=== PATIENT | female | born 1940 | race Two or more races ===

== ENCOUNTER 2019-07-06 16:23 | Inpatient (IN) | payer MEDICARE, MEDICAID ==
[~2019-07-06] VITALS: Ht 165.1 cm; Wt 108.4 kg
--- NOTE | 2019-07-06 17:00 | NUR ---
patient bib ra c/o episode of aphasia, now resolved. On room air, breathing evenly and unlabored. connected to the monitro and pulse ox. kept comfortable, will continue to monitor accordingly.
[2019-07-06 17:04] LABS: BASOPHILS % (AUTO) 0.3 % (0.0-2.0); EOSINOPHILS % (AUTO) 0.1 % (0.0-6.0); HEMATOCRIT 49 % (33-45); HEMOGLOBIN 16.1 g/dL (11.5-14.8); LYMPHOCYTES # (AUTO) 0.6 /CMM (0.8-4.8); LYMPHOCYTES % (AUTO) 3.6 % (20.0-44.0); MEAN CORPUSCULAR HGB CONC 33 g/dl (31.0-36.0); MEAN CORPUSCULAR VOLUME 85 fL (82-100); MONOCYTES % (AUTO) 6.2 % (2.0-12.0); NEUTROPHILS # (AUTO) 15.1 /CMM (1.8-8.9); NEUTROPHILS % (AUTO) 89.8 % (43.0-81.0); PLATELET COUNT (AUTO) 228 /CMM (150-450); RED BLOOD CELL COUNT(AUTO) 5.73 MIL/uL (4.0-5.2); WHITE BLOOD COUNT (AUTO) 16.8 K/uL (4.3-11.0)
[2019-07-06 17:12] LABS: CALCIUM, SERUM 9.4 mg/dL (8.5-10.1); CARBON DIOXIDE 24 mmol/L (21-32); CHLORIDE 103 mmol/L (98-107); CREATININE 0.9 mg/dL (0.6-1.3); GLUCOSE 155 mg/dL (74-106); POTASSIUM 3.8 mmol/L (3.5-5.1); SODIUM SERUM 140 mmol/L (136-145); UREA NITROGEN, BLOOD 12 mg/dL (7-18)
[2019-07-06 17:18] LABS: APPEARANCE,URINE Slightly Cloudy (CLEAR); BILIRUBIN,URINE SMALL (NEGATIVE); BLOOD, URINE Moderate Ery/uL (NEGATIVE); COLOR,URINE Dark (YELLOW); KETONES,URINE Negative (NEGATIVE); LEUKOCYTE ESTERASE ,URINE Negative (NEGATIVE); NITRITE, URINE Positive (NEGATIVE); PROTEIN,URINE Trace mg/dl (NEGATIVE); UGLUCOSE Negative (NEGATIVE); UROBILINOGEN,URINE 0.2 EU/dL (0.2)
[2019-07-06 17:33] LABS: BACTERIA,URINE Many /HPF (None Seen); SQUAMOUS EPITHELIAL CELL,UR Rare /HPF (None Seen)
[2019-07-06 17:34] LABS: RBC,URINE 0-2 /HPF (0-2); URINE AMORPHOUS URATE Many /HPF (None Seen)
[2019-07-06] MEDS ORDERED: CEFTRIAXONE 1GM BAG (ER ONLY) 50 ML IV ONE (17:51)
[2019-07-06] MEDS ORDERED: CEFTRIAXONE 1GM BAG (ER ONLY) 1 GM/50 ML PIGGYBACK IV ONE (18:00)
[2019-07-06] MEDS ORDERED: IV NS 0.9% 1,000 ML IV ONE (18:00)
[2019-07-06] MEDS ORDERED: ATOR10TA PO (18:03)
[2019-07-06] MEDS ORDERED: ACET-2605 PO (18:03)
[2019-07-06] MEDS ORDERED: AMLO5TAB4 PO (18:03)
[2019-07-06] MEDS ORDERED: ASPI-1169 PO (18:03)
[2019-07-06] MEDS ORDERED: ATEN100T PO (18:03)
[2019-07-06] MEDS ORDERED: DOCU250C14 PO (18:03)
--- NOTE | 2019-07-06 18:11 | NUR ---
WON PAGED, DR. HAMMOND ON-CALL. AWAITING FOR CALL BACK.
[2019-07-06] MEDS ORDERED: Magnesium 1GM/D5W 100ML PREMIX 100 ML IV ONE (18:27)
[2019-07-06] MEDS ORDERED: Magnesium 1GM/D5W 100ML PREMIX 100 ML IV SCH (18:30)
[2019-07-06 18:51] LABS: ALBUMIN 3.5 g/dL (3.4-5.0); BILIRUBIN,DIRECT 1.1 mg/dL (0.0-0.2); TOTAL PROTEIN, SERUM 7.8 g/dL (6.4-8.2)
--- NOTE | 2019-07-06 19:09 | NUR ---
report given to Monica ECHEVERRIA for eleonora.
--- NOTE | 2019-07-06 19:11 | NUR ---
PAGED DR MEZA
[2019-07-06 19:28] LABS: BILIRUBIN,TOTAL 1.7 mg/dL (0.2-1.0)
--- NOTE | 2019-07-06 20:17 | NUR ---
CALLED NURSING SUP FOR BED
--- NOTE | 2019-07-06 20:57 | NUR ---
BED 310-2
--- NOTE | 2019-07-06 21:21 | NUR ---
REPORT GIVEN TO EVELIO
[2019-07-06] MEDS ORDERED: ACETAMINOPHEN 325 MG TABLET PO PRN (21:30)
[2019-07-06] MEDS ORDERED: PIPERACILLIN /TAZOBACTAM 2.25 G in IV D5W 50 ML IV SCH (21:30)
[2019-07-06] MEDS ORDERED: ONDANSETRON HCL/PF 4 MG/2 ML VIAL IVP PRN (21:30)
[2019-07-06] MEDS ORDERED: Z GUARD REMEDY 2 OZ OINT TP PRN (21:30)
[2019-07-06 21:45] VITALS: BP 132/57
--- NOTE | 2019-07-06 21:51 | NUR ---
pt was transfered to [facility] under ACLS
--- NOTE | 2019-07-06 21:55 | NUR ---
TELE/RN ADMITTING NOTES: REPORT GIVEN BY GISSELL. PATIENT ARRIVED TO THE UNIT VIA GURNEY UNDER ACLS PROTOCOL. A/OX3. IN STABLE CONDITION. VERBALLY RESPONSIVE, ABLE TO SAY YES AND NO. PRESENT AT BEDSIDE AND HELPS ANSWER QUESTIONS. VITAL SIGNS TAKEN AND WNL. NO SOB NOTED, NO S/S OF DISTRESS, NO COMPLAINS OF PAIN OR DISCOMFORT AT THIS TIME. SKIN IS INTACT. NO OPEN WOUNDS OR REDNESS UPON ASSESSMENT. BELONGINGS LIST CHECKED. IV SITE IS ON THE RIGHT AC #20G. INTACT AND PATENT. ORIENTED TO UNIT AND STAFF. SAFETY MEASURES ARE INITIATED. BED IS IN LOW, LOCKED POSITION. SR UP X2. WILL CONTINUE PLAN OF CARE AND CONTINUE MONITORING PT ACCORDINGLY.
[2019-07-06 22:00] VITALS: BP 132/57
--- NOTE | 2019-07-06 22:00 | NUR ---
TELE/RN NOTES: ON TELE MONITORING WITH READING OF SR WITH HR ON THE 80S. STABLE, WILL CONTINUE MONITORING PT ACCORDINGLY.
[2019-07-06] MEDS: IV NS 0.9% 1,000 ML IV PRN (22:20)
[2019-07-06] MEDS ORDERED: ZOSYN IVPB 3.375 G in IV D5W 50ml IV ONE (23:45)
[2019-07-07] VITALS: BP 130/68
[2019-07-07] MEDS ORDERED: PIPERACILLIN /TAZOBACTAM 3.375 G VIAL IV ONE (00:21)
[2019-07-07 04:00] VITALS: BP 133/65
[2019-07-07 05:30] LABS: BASOPHILS % (AUTO) 0.1 % (0.0-2.0); EOSINOPHILS % (AUTO) 0.5 % (0.0-6.0); HEMATOCRIT 44 % (33-45); HEMOGLOBIN 14.7 g/dL (11.5-14.8); LYMPHOCYTES # (AUTO) 0.9 /CMM (0.8-4.8); LYMPHOCYTES % (AUTO) 8.2 % (20.0-44.0); MEAN CORPUSCULAR HGB CONC 33 g/dl (31.0-36.0); MEAN CORPUSCULAR VOLUME 85 fL (82-100); MONOCYTES # (AUTO) 0.9 /CMM (0.1-1.30); MONOCYTES % (AUTO) 8.3 % (2.0-12.0); NEUTROPHILS # (AUTO) 9.1 /CMM (1.8-8.9); NEUTROPHILS % (AUTO) 82.9 % (43.0-81.0); PLATELET COUNT (AUTO) 187 /CMM (150-450); RED BLOOD CELL COUNT(AUTO) 5.19 MIL/uL (4.0-5.2); WHITE BLOOD COUNT (AUTO) 10.9 K/uL (4.3-11.0)
[2019-07-07 05:47] LABS: ALBUMIN 2.8 g/dL (3.4-5.0); BILIRUBIN,TOTAL 2.9 mg/dL (0.2-1.0); CALCIUM, SERUM 8.4 mg/dL (8.5-10.1); CREATININE 0.7 mg/dL (0.6-1.3); MAGNESIUM 1.9 mg/dL (1.8-2.4); PHOSPHORUS 2.7 mg/dL (2.5-4.9); POTASSIUM 3.2 mmol/L (3.5-5.1); TOTAL PROTEIN, SERUM 6.4 g/dL (6.4-8.2)
[2019-07-07] MEDS ORDERED: PIPERACILLIN /TAZOBACTAM 3.375 G in IV D5W 50 ML IV ONE (06:30)
--- NOTE | 2019-07-07 07:20 | NUR ---
TELE/RN CLOSING NOTES: PATIENT IS SLEEPING IN BED, AROUSABLE TO VERBAL STIMULI. IN STABLE CONDITION. NO SIGNIFICANT CHANGES IN CONDITION. REMAINS A/OX3. NS RUNNING AT 75ML/HR ON THE RIGHT AC #20G. NO COMPLAINS OF PAIN OR DISCOMFORT AT THIS TIME. NO S/S OF DISTRESS, NO SOB NOTED. WILL ENDORSE TO MORNING SHIFT FOR CLOTILDE.
[2019-07-07 08:00] VITALS: BP 133/60
--- NOTE | 2019-07-07 08:00 | NUR ---
RN PEDIATRIC ICU OPENING NOTES Received Patient asleep and resting in bed. A/O x 2. VS stable with no acute distress. Breathing even and unlabored on room air with no respiratory distress. Denies pain. No signs and symptoms of pain. Telemonitor in place and patent reading SR with HR-78. 20g PIV on RAC clean, intact, patent and flushing well with NS infusing at 75ml/hr. Safety precautions in place. Bed locked and set to lowest position with side rails x 2 up. All needs rendered at this time. Call light within reach. Will continue to monitor.
--- NOTE | 2019-07-07 08:44 | NUR ---
GENERAL MEDICAL PRACTITIONER NOTES Obtained consent for hepatobiliary scan from at this time. Explained risks and benefits of procedure. agreed to consent. Consent placed in chart. Patient in stable condition. Will continue to monitor.
[2019-07-07] MEDS: ASPIRIN 81 MG TAB.CHEW PO SCH (08:54)
[2019-07-07] MEDS: ATENOLOL 50 MG TABLET PO SCH (08:54)
[2019-07-07] MEDS: PANTOPRAZOLE 40 MG TABLET.DR PO SCH (08:54)
[2019-07-07] MEDS: POTASSIUM CHLORIDE 20 MEQ TAB.PRT.SR PO SCH ×2 (13:03→13:13)
[2019-07-07] MEDS: PIPERACILLIN /TAZOBACTAM 3.375 G in IV D5W 100 ML IV SCH ×2 (13:03→20:22)
[2019-07-07 16:00] VITALS: BP 132/73
[2019-07-07] MEDS: AMLODIPINE BESYLATE 5 MG TABLET PO SCH (18:33)
[2019-07-07] MEDS: ATORVASTATIN 10 MG TABLET PO SCH (18:33)
--- NOTE | 2019-07-07 19:29 | NUR ---
MS RN CLOSING NOTES Patient awake and watching TV in bed. A/O x 2, Cook Islander speaking. VS stable with no acute distress. Breathing even and unlabored on room air with no respiratory distress. Denies pain. No signs and symptoms of pain. 20g PIV on RAC clean, intact, patent and flushing well with NS infusing at 75ml/hr. Safety precautions in place. Bed locked and set to lowest position with side rails x 2 up. All needs rendered at this time. Call light within reach. Will endorse plan of care to oncoming shift.
--- NOTE | 2019-07-07 19:35 | NUR ---
MSRN EASILY AWAKEND WHEN CALLED, NO SOB, DENIES ANY DISCOMFORTS, REPOSITIONED FOR COMFORT. PLAN OF CARE AND MEDICATION REGIMEN DISCUSSED WITH PATIENT, NEEDS FURTHER INSTRUCTIONS. NO NEEDS FOR NOW. CLOSELY WATCHED.
[2019-07-07 20:00] VITALS: BP 156/83
--- NOTE | 2019-07-07 23:44 | NUR ---
MSRN HS CARE DONE CONTINUED.
[2019-07-08] MEDS: PIPERACILLIN /TAZOBACTAM 3.375 G in IV D5W 100 ML IV SCH ×3 (04:04→20:41)
[2019-07-08] MEDS: IV NS 0.9% 1,000 ML IV PRN ×2 (04:14→17:32)
[2019-07-08 06:44] LABS: CALCIUM, SERUM 8.8 mg/dL (8.5-10.1); CREATININE 0.8 mg/dL (0.6-1.3); POTASSIUM 3.6 mmol/L (3.5-5.1)
[2019-07-08 06:49] LABS: BASOPHILS % (AUTO) 0.3 % (0.0-2.0); EOSINOPHILS % (AUTO) 2.7 % (0.0-6.0); HEMATOCRIT 46 % (33-45); HEMOGLOBIN 15.5 g/dL (11.5-14.8); LYMPHOCYTES # (AUTO) 0.9 /CMM (0.8-4.8); LYMPHOCYTES % (AUTO) 14.2 % (20.0-44.0); MEAN CORPUSCULAR HGB CONC 34 g/dl (31.0-36.0); MEAN CORPUSCULAR VOLUME 85 fL (82-100); MONOCYTES # (AUTO) 0.7 /CMM (0.1-1.30); MONOCYTES % (AUTO) 10.5 % (2.0-12.0); NEUTROPHILS # (AUTO) 4.6 /CMM (1.8-8.9); NEUTROPHILS % (AUTO) 72.3 % (43.0-81.0); PLATELET COUNT (AUTO) 201 /CMM (150-450); RED BLOOD CELL COUNT(AUTO) 5.42 MIL/uL (4.0-5.2); WHITE BLOOD COUNT (AUTO) 6.4 K/uL (4.3-11.0)
[2019-07-08 06:50] LABS: ALBUMIN 2.9 g/dL (3.4-5.0); BILIRUBIN,TOTAL 1.4 mg/dL (0.2-1.0); PHOSPHORUS 2.5 mg/dL (2.5-4.9); TOTAL PROTEIN, SERUM 6.7 g/dL (6.4-8.2)
--- NOTE | 2019-07-08 07:06 | NUR ---
MSRN REMAINS UNCHANGE, BEDBATHED, ASSISTED, NO COMPLAINTS MADE.
--- NOTE | 2019-07-08 08:00 | NUR ---
MS RN OPENING NOTES Patient awake and watching TV in bed. A/O x 2, Singaporean speaking only. VS stable with no acute distress. no cardiac or respiratory distress noted. no complaints of pain or discomfort. Breathing even and unlabored on room air with no respiratory distress. Denies pain. No signs and symptoms of pain. 20g PIV on RAC clean, intact, patent and flushing well with NS infusing at 75ml/hr. Safety precautions in place. Bed locked and set to lowest position with side rails x 2 up. All needs rendered at this time. Call light within reach. Will endorse plan of care to oncoming shift.
[2019-07-08 08:18] VITALS: BP 141/72
[2019-07-08] MEDS: PANTOPRAZOLE 40 MG TABLET.DR PO SCH (09:08)
[2019-07-08] MEDS: ASPIRIN 81 MG TAB.CHEW PO SCH (09:08)
[2019-07-08] MEDS: ATENOLOL 50 MG TABLET PO SCH (09:08)
[2019-07-08 15:58] VITALS: BP 125/70
[2019-07-08] MEDS: ATORVASTATIN 10 MG TABLET PO SCH (17:32)
[2019-07-08] MEDS: AMLODIPINE BESYLATE 5 MG TABLET PO SCH (17:32)
--- NOTE | 2019-07-08 17:56 | NUR ---
MS RN CLOSING NOTES Patient awake and watching TV in bed. A/O x 2, Yakut speaking only. VS stable with no acute distress. no cardiac or respiratory distress noted. no complaints of pain or discomfort. Breathing even and unlabored on room air with no respiratory distress. Denies pain. No signs and symptoms of pain. 20g PIV on RAC clean, intact, patent and flushing well with NS infusing at 75ml/hr. pt completed abd ultrasound today. no acute cholecystitis noted. contacted fran hale paint preparer, per fran harris pt npo except for meds. . Safety precautions in place. Bed locked and set to lowest position with side rails x 2 up. All needs rendered at this time. Call light within reach. Will endorse plan of care to oncoming shift.
--- NOTE | 2019-07-08 17:59 | NUR ---
KEEP PT NPO EXCEPT MEDS ROSEMARIE DAVENPORT TO CLARIFY RE NPO STATUS. PER JOEL, CONTINUE TO KEEP PT NPO EXCEPT FOR MEDS. NOTED AND CARRIED OUT.
[2019-07-08 20:00] VITALS: BP 138/79
[2019-07-09] MEDS: PIPERACILLIN /TAZOBACTAM 3.375 G in IV D5W 100 ML IV SCH ×3 (04:22→19:01)
--- NOTE | 2019-07-09 06:30 | NUR ---
MSRN NO COMPLAINTS MADE, STABLE FOR NOW. PARTIAL AM CARE RENDERED.
[2019-07-09 08:00] VITALS: BP 139/70
[2019-07-09] MEDS: ASPIRIN 81 MG TAB.CHEW PO SCH (08:06)
[2019-07-09] MEDS: PANTOPRAZOLE 40 MG TABLET.DR PO SCH (08:06)
[2019-07-09] MEDS: ATENOLOL 50 MG TABLET PO SCH (08:07)
[2019-07-09] MEDS: IV NS 0.9% 1,000 ML IV PRN (08:34)
--- NOTE | 2019-07-09 09:00 | NUR ---
MS RN OPENING NOTES Patient awake and watching TV in bed. A/O x 2, Syrian speaking only. VS stable with no acute distress. no cardiac or respiratory distress noted. no complaints of pain or discomfort. Breathing even and unlabored on room air with no respiratory distress. Denies pain. No signs and symptoms of pain. 20g PIV on RAC clean, intact, patent and flushing well with NS infusing at 75ml/hr. Safety precautions in place. Bed locked and set to lowest position with side rails x 2 up. All needs rendered at this time. Call light within reach.
[2019-07-09 11:59] LABS: BASOPHILS % (AUTO) 0.4 % (0.0-2.0); EOSINOPHILS % (AUTO) 2.1 % (0.0-6.0); HEMATOCRIT 49 % (33-45); HEMOGLOBIN 15.7 g/dL (11.5-14.8); LYMPHOCYTES # (AUTO) 1.3 /CMM (0.8-4.8); LYMPHOCYTES % (AUTO) 19.5 % (20.0-44.0); MEAN CORPUSCULAR HGB CONC 32 g/dl (31.0-36.0); MEAN CORPUSCULAR VOLUME 86 fL (82-100); MONOCYTES # (AUTO) 0.7 /CMM (0.1-1.30); NEUTROPHILS # (AUTO) 4.7 /CMM (1.8-8.9); PLATELET COUNT (AUTO) 212 /CMM (150-450); RED BLOOD CELL COUNT(AUTO) 5.65 MIL/uL (4.0-5.2); WHITE BLOOD COUNT (AUTO) 6.8 K/uL (4.3-11.0)
[2019-07-09 12:33] LABS: ALBUMIN 2.8 g/dL (3.4-5.0); BILIRUBIN,DIRECT 0.2 mg/dL (0.0-0.2); BILIRUBIN,TOTAL 0.8 mg/dL (0.2-1.0); CALCIUM, SERUM 9.1 mg/dL (8.5-10.1); CREATININE 0.7 mg/dL (0.6-1.3); POTASSIUM 3.9 mmol/L (3.5-5.1); TOTAL PROTEIN, SERUM 6.9 g/dL (6.4-8.2)
[2019-07-09] MEDS ORDERED: PIPE3.379 IV (14:08)
[2019-07-09 16:00] VITALS: BP 143/76
--- NOTE | 2019-07-09 16:30 | NUR ---
PT NOTIFIED OF D/C PLANS FOR TODAY PT NOTIFIED OF D/C PLANS FOR TODAY. PER PT, "WHY DO I HAVE TO LEAVE TODAY? I LIKE THE FOOD HERE. ID RATHER LEAVE TOMORROW" INFORMED PT REGARDING MD ORDERS AND THAT SHE IS STABLE. PT AGREED. Addendum: 07/09/19 at 1840 by LUCILA SANCHES RN DISREGARD NOTE ABOVE. ENTERED ON WRONG PT
[2019-07-09 17:18] VITALS: BP 143/76
[2019-07-09] MEDS: AMLODIPINE BESYLATE 5 MG TABLET PO SCH (17:18)
[2019-07-09] MEDS: ATORVASTATIN 10 MG TABLET PO SCH (17:18)
--- NOTE | 2019-07-09 18:00 | NUR ---
C/O HIVES/FLUSHING PT COMPLAINED OF RASH. NOTED WITH RASHES ON JASE UPPER EXT. CALLED AND NOTIFIED JOEL DAVENPORT. BENADRYL 50MG IV PUSH ORDERED AND GIVEN. Addendum: 07/09/19 at 1840 by LUCILA SANCHES RN DISREGARD ABOVE NOTE. ENTERED ON WRONG PT
--- NOTE | 2019-07-09 18:30 | NUR ---
REFUSING TO GO BACK TO SNF PT REFUSING TO GO BACK TO SNF AFTER SHE HAD A REACTION TO [facility]. STATES, "I DONT WANNA LEAVE TODAY." PAGED JOEL DAVENPORT AWAITING CALL BACK. Addendum: 07/09/19 at 1840 by LUCILA SANCHES RN DISREGARD ABOVE NOTE. ENTERED ON WRONG PT
--- NOTE | 2019-07-09 18:59 | NUR ---
D/C PT FOR D/C TONIGHT WITH HOMEHEALTH WITH IV ATB. IM STABLE CONDITION. IV ATB WILL BE DELIVERED AT PTS HOME BETWEEN 9-10PM. WILL ADMINISTER ZOSYN DOSE PRIOR TO D/C. REVIEWED D/C INSTRUCTIONS WITH PTS AND HUBAND VERBALIZES FULL UNDERSTANDING. EXPLAINED THAT THEY NEED TO MAKE A F/U APPT WITH DR DUEÑAS. PER D/C PT WITH PERIPHERAL IV.
--- NOTE | 2019-07-09 19:30 | NUR ---
MS RN OPENING NOTES RECEIVED PATIENT FROM MORNING SHIFT ALERT AND ORIENTED X 3 FAMILY ON BEDSIDE. VERBALLY RESPONSIVE AND ABLE TO FOLLOW DIRECTIONS. BREATHING REGULAR AND UNLABORED ON ROOM AIR. RIGHT HAND G20 IV LINE INTACT AND PATENT INFUSING WELL WITH NO BLEEDING OR S/S OF INFECTION/INFILTRATION NOTED. BODY ASSESSMENT DONE, SKIN REMAINED INTACT CLEAN AND DRY. NO COMPLAINTS OF PAIN/DISCOMFORT REPORTED OF THE TIME. BED LOW AND LOCKED ON SEMI FOWLERS POSITION. CALL LIGHT IN REACH. WILL CONTINUE TO MONITOR.
--- NOTE | 2019-07-09 20:35 | NUR ---
MS STAINED GLASS INSTALLER NOTES DISCHARGE PATIENT VIA WHEELCHAIR WITH FAMILY DRIVING HER HOME. REMAINED ALERT AND ORIENTED X 3. ASSISTED ON DRESSING UP AND TRANSFER TO WHEELCHAIR, WHEELED DOWN TO THE LOBBY. RIGHT HAND G20 IV LINE PATENT AND INTACT FLUSHING WELL WITH NO BLEEDING OR S/S OF INFECTION/INFILTRATION NOTED. SKIN REMAINED INTACT CLEAN AND DRY. ID BAND REMOVED. PACKET GIVEN AND BELONGINGS WITH WALKER ACCOUNTED FOR AND GIVEN TO THE AND SON. DISCHARGED WITH STABLE CONDITION.
== END 2019-07-09 20:40 | disposition home health service (06) | DRG 872 ==
LOC: ER 16:28 → TELE 20:58 → MED 07-07 10:20
PROVIDERS: ADMIT Nurse Practitioner Acute Care; ATTEND Nurse Practitioner Acute Care
DX: A41.9 Sepsis, unspecified organism (principal); N39.0 Urinary tract infection, site not specified; K81.0 Acute cholecystitis; E87.2 Acidosis; I69.351 Hemiplegia and hemiparesis following cerebral infarction affecting right dominant side; Z68.41 Body mass index [BMI] 40.0-44.9, adult; E83.42 Hypomagnesemia; E86.0 Dehydration; E78.5 Hyperlipidemia, unspecified; I10 Essential (primary) hypertension; D72.829 Elevated white blood cell count, unspecified; R74.0 Nonspecific elevation of levels of transaminase and lactic acid dehydrogenase [LDH]; E80.6 Other disorders of bilirubin metabolism; R55 Syncope and collapse; E66.01 Morbid (severe) obesity due to excess calories; I69.820 Aphasia following other cerebrovascular disease; Z87.891 Personal history of nicotine dependence; B96.20 Unspecified Escherichia coli [E. coli] as the cause of diseases classified elsewhere
CPT/HCPCS: 36415; 70450-TC; 71045-TC; 76700-TC; 78226; 80048-TC; 80053-TC; 80061-TC; 80076-TC; 81000-TC; 82247-TC; 82248-TC; 82962-TC; 83540-TC; 83605-TC; 83735-TC; 84100-TC; 84484-TC; 85025-TC; 85730-TC; 87040-TC; 87081-TC; 87086-TC; 87186-TC; 93307-TC; A9537; G0378; J0696; J2543; J3475; J7030; J7050; J7060

== ENCOUNTER 2019-10-18 22:26 | Inpatient (IN) | payer MEDICARE, OTHER ==
[~2019-10-18] VITALS: Ht 170.2 cm; Wt 108.9 kg
[~2019-10-18 22:26] MED LIST: ACET-2605 PO; AMLO5TAB4 PO; ASPI-1169 PO; ATEN100T PO; ATOR10TA PO; DOCU250C14 PO; PIPE3.379 IV
--- NOTE | 2019-10-18 22:32 | NUR ---
EMT AT BEDSIDE FOR EKG
--- NOTE | 2019-10-18 22:39 | NUR ---
PATIENT CAME TO ER BED 3 BIB RA FROM HOME C/O SYNCOPAL EVENT. PER REPORT, PATIENT WAS HAVING DINNER WITH WHEN SHE PASSED OUT AND SLUMPED OVER ON HER CHAIR. PATIENT HAS HX OF STROKE ABOUT 5 YEARS AGO. PATIENT IS NON VERBAL, AND IS AWAKE AND ALERT. NO SOB. BREATHING EVENLY AND UNLABORED ON ROOM AIR. CONNECTED TO MONITOR.
--- NOTE | 2019-10-18 22:51 | NUR ---
PT PHONE NUMBER
--- NOTE | 2019-10-18 22:56 | NUR ---
URINE AND BLOOD COLLECTED AND SENT TO THE LAB.
[2019-10-18 22:57] LABS: BASOPHILS # (AUTO) 0.1 /CMM (0.0-0.2); BASOPHILS % (AUTO) 1.3 % (0.0-2.0); HEMATOCRIT 48 % (33-45); HEMOGLOBIN 15.7 g/dL (11.5-14.8); LYMPHOCYTES # (AUTO) 2.4 /CMM (0.8-4.8); LYMPHOCYTES % (AUTO) 24.1 % (20.0-44.0); MEAN CORPUSCULAR HGB CONC 33 g/dl (31.0-36.0); MEAN CORPUSCULAR VOLUME 86 fL (82-100); MONOCYTES # (AUTO) 0.7 /CMM (0.1-1.30); MONOCYTES % (AUTO) 7.4 % (2.0-12.0); NEUTROPHILS # (AUTO) 6.6 /CMM (1.8-8.9); NEUTROPHILS % (AUTO) 65.2 % (43.0-81.0); PLATELET COUNT (AUTO) 277 /CMM (150-450); RED BLOOD CELL COUNT(AUTO) 5.52 MIL/uL (4.0-5.2); WHITE BLOOD COUNT (AUTO) 10.1 K/uL (4.3-11.0)
[2019-10-18 22:58] LABS: CALCIUM, SERUM 9.3 mg/dL (8.5-10.1); POTASSIUM 3.5 mmol/L (3.5-5.1)
[2019-10-18 23:07] LABS: APPEARANCE,URINE Clear (CLEAR); BILIRUBIN,URINE SMALL (NEGATIVE); BLOOD, URINE Moderate Ery/uL (NEGATIVE); COLOR,URINE Yellow (YELLOW); KETONES,URINE Negative (NEGATIVE); LEUKOCYTE ESTERASE ,URINE Negative (NEGATIVE); NITRITE, URINE Negative (NEGATIVE); PROTEIN,URINE Negative (NEGATIVE); UGLUCOSE Negative (NEGATIVE); UROBILINOGEN,URINE 0.2 EU/dL (0.2)
[2019-10-18 23:39] LABS: BACTERIA,URINE Few /HPF (None Seen); RBC,URINE TOO NUMEROUS TO COUN /HPF (0-2)
[2019-10-18 23:40] LABS: MUCUS,URINE Few /LPF (None Seen); SQUAMOUS EPITHELIAL CELL,UR Few /HPF (None Seen)
--- NOTE | 2019-10-19 00:27 | NUR ---
REPORT GIVEN TO RIVAS ECHEVERRIA FOR CLOTILDE.
[2019-10-19] MEDS ORDERED: MAGNESIUM HYDROXIDE 30 ML UDC PO PRN (00:30)
[2019-10-19] MEDS ORDERED: ONDANSETRON HCL/PF 4 MG/2 ML VIAL IVP PRN (00:30)
[2019-10-19] MEDS ORDERED: Z GUARD REMEDY 2 OZ OINT TP PRN (00:30)
[2019-10-19] MEDS ORDERED: MAG HYDROX/AL HYDROX/SIMETH 30 ML UDC PO PRN (00:30)
[2019-10-19] MEDS ORDERED: TEMAZEPAM 15 MG CAPSULE PO PRN (00:30)
[2019-10-19] MEDS ORDERED: HYDROCODONE/APAP 5/325MG 1 EACH TABLET PO PRN (00:30)
[2019-10-19] MEDS ORDERED: ACETAMINOPHEN 325 MG TABLET PO PRN (00:30)
[2019-10-19] MEDS ORDERED: MORPHINE SULFATE INJ 2 MG/ML DISP.SYRIN IV PRN (00:30)
[2019-10-19 01:05] VITALS: BP 128/60
--- NOTE | 2019-10-19 01:05 | NUR ---
ENGINE OILER ADMITTING NOTES RECEIVED PT FROM ER VIA INGRID IN STABLE CONDITION. PT A/O X1-2 AND ABLE TO MAKE NEEDS KNOW. PT ANSWERS SIMPLE QUESTIONS WITH SIMPLE ANSWERS. NO COMPLAINTS OF PAIN AT THIS TIME. RESPIRATIONS EVEN AND UNLABORED WITH NO S/S OF ACUTE DISTRESS OR SOB NOTED. ORIENTED PT TO STAFF AND ROOM. SAFETY MEASURES IN PLACE WITH BED IN LOWEST LOCKED POSITION WITH SIDE RAILS UP X2. CALL LIGHT WITHIN REACH. WILL CONTINUE TO MONITOR.
--- NOTE | 2019-10-19 01:10 | NUR ---
PT TRANSFERED PER ACLS PROTOCOL
[2019-10-19] MEDS: IV NS 0.9% 1,000 ML IV PRN ×2 (01:44→18:16)
[2019-10-19 04:00] VITALS: BP_SYST 129; BP_SYST 133; BP_DIAS 76; BP_DIAS 89
[2019-10-19] MEDS: PANTOPRAZOLE 40 MG TABLET.DR PO SCH (07:30)
--- NOTE | 2019-10-19 07:40 | NUR ---
PHYSICIAN LIAISON OPENING NOTE PATIENT IN BED RESTING COMFORTABLY. PATIENT IN NO ACUTE DISTRESS. NO SOB NOTED. PATIENT BREATHING IS EVEN AND UNLABORED. PATIENT ON CARDIAC MONITORING READING SINUS RHYTHM HR 69. PATIENT RESPONSIVE TO VERBAL STIMULI. PATIENT HOB IS ELEVATED. BED ALARM IS ON. SAFETY PRECAUTIONS IN PLACE. PATIENT BED IS LOCKED AND IN LOWEST POSITION. CALL LIGHT WITHIN REACH. WILL CONTINUE TO MONITOR.
--- NOTE | 2019-10-19 07:46 | NUR ---
NURSING ASSOCIATE NOTES PT IN BED AND AWAKE. PT A/O X1-2 AND ABLE TO MAKE NEEDS KNOW. NO COMPLAINTS OF PAIN AT THIS TIME. RESPIRATIONS EVEN AND UNLABORED WITH NO S/S OF ACUTE DISTRESS OR SOB NOTED. ORIENTED PT TO STAFF AND ROOM. SAFETY MEASURES IN PLACE WITH BED IN LOWEST LOCKED POSITION WITH SIDE RAILS UP X2. PT KEPT CLEAN, DRY, AND COMFORTABLE. CALL LIGHT WITHIN REACH. WILL ENDORSE TO ONCOMING NURSE FOR CLOTILDE.
[2019-10-19 08:00] VITALS: BP_SYST 113; BP_SYST 130; BP_SYST 132; BP_DIAS 51; BP_DIAS 65; BP_DIAS 81
--- NOTE | 2019-10-19 09:30 | NUR ---
SUGAR CHIPPER MACHINE OPERATOR NOTES SPOKE WITH ANDRÉS VICK REGARDING DIET ORDER. PATIENT STATES NOT EXPERIENCING ABDOMINAL PAIN. PER ANDRÉS PATIENT IS ALLOWED TO BE ON CARDIAC DIET AT THIS TIME AND TAKE OFF NPO STATUS.
[2019-10-19] MEDS: ASPIRIN 81 MG TAB.CHEW PO SCH (09:35)
[2019-10-19] MEDS: AMLODIPINE BESYLATE 5 MG TABLET PO SCH (09:35)
[2019-10-19] MEDS: ENOXAPARIN SODIUM 40 MG/0.4 ML DISP.SYRIN SQ SCH (09:35)
[2019-10-19] MEDS: ATENOLOL 50 MG TABLET PO SCH (09:36)
[2019-10-19 10:55] LABS: CHOLESTEROL 167 mg/dL (<200); HDL CHOLESTEROL 32 mg/dL (40-60); LDL 112 mg/dL (0-99); THYROID STIMULATING HORMONE 2.755 uIU/mL (0.358-3.74); TRIGLYCERIDES 263 mg/dL (30-150)
[2019-10-19 11:21] LABS: ALANINE AMINOTRANSFERASE 19 U/L (12-78); ALKALINE PHOSPHATASE 84 U/L (46-116); ASPARTATE AMINOTRANSFERASE 25 U/L (15-37); BILIRUBIN,TOTAL 0.3 mg/dL (0.2-1.0); CALCIUM, SERUM 8.6 mg/dL (8.5-10.1); CARBON DIOXIDE 23 mmol/L (21-32); CHLORIDE 104 mmol/L (98-107); CREATININE 0.8 mg/dL (0.6-1.3); GLUCOSE 114 mg/dL (74-106); PHOSPHORUS 3.4 mg/dL (2.5-4.9); SODIUM SERUM 139 mmol/L (136-145); TOTAL PROTEIN, SERUM 6.8 g/dL (6.4-8.2); UREA NITROGEN, BLOOD 10 mg/dL (7-18)
[2019-10-19 16:00] VITALS: BP 133/71
[2019-10-19 16:51] VITALS: BP_SYST 133; BP_SYST 137; BP_SYST 140; BP_DIAS 57; BP_DIAS 63; BP_DIAS 71
--- NOTE | 2019-10-19 18:47 | NUR ---
CREAM HAULER CLOSING NOTE PATIENT IN BED RESTING COMFORTABLY. PATIENT IN NO ACUTE DISTRESS. NO SOB NOTED. PATIENT BREATHING IS EVEN AND UNLABORED. PATIENT ON CARDIAC MONITORING READING SINUS RHYTHM HR 74. PATIENT RESPONSIVE TO VERBAL STIMULI. PATIENT KEPT CLEAN, DRY AND COMFORTABLE THROUGHOUT SHIFT. PATIENT NEEDS AND CONCERNS ADDRESSED. PATIENT HOB IS ELEVATED. BED ALARM IS ON. SAFETY PRECAUTIONS IN PLACE. PATIENT BED IS LOCKED AND IN LOWEST POSITION. CALL LIGHT WITHIN REACH. WILL ENDORSE CARE TO PM SHIFT FOR CLOTILDE.
--- NOTE | 2019-10-19 19:50 | NUR ---
RN OPEN NOTES PATIENT IS SLEEPING IN BED. APPEARS COMFORTABLE/ NO COMPLAINTS OF PAIN. BED IS IN LOWEST LOCKED POSITION WITH SIDE RAILS UP, SEMI FOWLERS. ON RA, NO SOB/ ACUTE RESPIRATORY DISTRESS NOTED. CALL LIGHT IS WITHIN REACH. WILL CONTINUE TO MONITOR.
[2019-10-19 20:00] VITALS: BP 154/77
[2019-10-19] MEDS ORDERED: ATORVASTATIN 10 MG TABLET PO SCH (22:00)
[2019-10-20] VITALS: BP 139/77
[2019-10-20 04:00] VITALS: BP 131/68
[2019-10-20 05:34] VITALS: BP_SYST 125; BP_SYST 131; BP_SYST 142; BP_DIAS 68; BP_DIAS 71; BP_DIAS 74
[2019-10-20] MEDS: IV NS 0.9% 1,000 ML IV PRN (05:42)
--- NOTE | 2019-10-20 06:30 | NUR ---
RN CLOSE NOTES PATIENT IS LAYING IN BED. ON RA, NO SOB/ ACUTE RESPIRATORY DISTRESS NOTED. BED IS IN LOWEST LOCKED POSITION WITH SIDE RAILS UP, SEMI FOWLERS. APPEARS COMFORTABLE/ NO COMPLAINTS OF PAIN AT THE MOMENT. ORTHOSTATIC VITALS DONE. CALL LIGHT IS WITHIN REACH. IV ON L FOREARM #20G IS PATENT AND INTACT, RUNNING NS @ 75 MLS/HR. ALL DUE MEDS GIVEN. WILL ENDORSE TO AM NURSE.
--- NOTE | 2019-10-20 07:56 | NUR ---
RN NOTES PATIENT IN BED RESTING NO SOB OR ACUTE DISTRESS NOTED. PATIENT VENT DEPENDENT. VENT SETTINGS NOTED. BED IN LOW LOCKED POSITION, CALL LIGHT WITHIN REACH. ON CONTINUES PULSE OXIMETER. WILL CONTINUE TO MONITOR.
[2019-10-20 08:29] VITALS: BP 146/76
[2019-10-20] MEDS: ASPIRIN 81 MG TAB.CHEW PO SCH (08:55)
[2019-10-20] MEDS: AMLODIPINE BESYLATE 5 MG TABLET PO SCH (08:55)
[2019-10-20 08:56] VITALS: BP 146/76
[2019-10-20] MEDS: ATENOLOL 50 MG TABLET PO SCH (08:56)
[2019-10-20] MEDS: ENOXAPARIN SODIUM 40 MG/0.4 ML DISP.SYRIN SQ SCH (08:57)
[2019-10-20] MEDS: PANTOPRAZOLE 40 MG TABLET.DR PO SCH (09:00)
[2019-10-20 09:14] LABS: BASOPHILS % (AUTO) 0.5 % (0.0-2.0); EOSINOPHILS % (AUTO) 1.7 % (0.0-6.0); HEMATOCRIT 46 % (33-45); HEMOGLOBIN 15.1 g/dL (11.5-14.8); LYMPHOCYTES % (AUTO) 22.3 % (20.0-44.0); MEAN CORPUSCULAR HGB CONC 33 g/dl (31.0-36.0); MEAN CORPUSCULAR VOLUME 86 fL (82-100); MONOCYTES # (AUTO) 0.6 /CMM (0.1-1.30); MONOCYTES % (AUTO) 6.7 % (2.0-12.0); NEUTROPHILS % (AUTO) 68.8 % (43.0-81.0); PLATELET COUNT (AUTO) 256 /CMM (150-450); RED BLOOD CELL COUNT(AUTO) 5.34 MIL/uL (4.0-5.2); WHITE BLOOD COUNT (AUTO) 8.8 K/uL (4.3-11.0)
--- NOTE | 2019-10-20 09:34 | NUR ---
ROUGH PLANER TENDER NOTES PATIENT SEEN BY ANDRÉS MARQUEZ ORDERS TO DISCHARGE PATIENT.
[2019-10-20 09:52] LABS: ALANINE AMINOTRANSFERASE 20 U/L (12-78); ALKALINE PHOSPHATASE 83 U/L (46-116); ASPARTATE AMINOTRANSFERASE 15 U/L (15-37); BILIRUBIN,TOTAL 0.4 mg/dL (0.2-1.0); CALCIUM, SERUM 8.7 mg/dL (8.5-10.1); CARBON DIOXIDE 26 mmol/L (21-32); CHLORIDE 104 mmol/L (98-107); CREATININE 0.8 mg/dL (0.6-1.3); GLUCOSE 151 mg/dL (74-106); PHOSPHORUS 2.9 mg/dL (2.5-4.9); POTASSIUM 3.4 mmol/L (3.5-5.1); SODIUM SERUM 139 mmol/L (136-145); TOTAL PROTEIN, SERUM 6.7 g/dL (6.4-8.2); UREA NITROGEN, BLOOD 9 mg/dL (7-18)
[2019-10-20 09:54] LABS: CHOLESTEROL 167 mg/dL (<200); HDL CHOLESTEROL 33 mg/dL (40-60); LDL 111 mg/dL (0-99); TRIGLYCERIDES 228 mg/dL (30-150)
--- NOTE | 2019-10-20 13:22 | NUR ---
SOCIAL WORK CONSULT NOTE: SW received consult for continuation of care, SW consulted with CRN who states that pt has a discharge order for this present day. Per RN, pt will be discharging home with her daughter. SW attempted to meet with pt, however, pt was asleep and not easily aroused by verbal cues.
--- NOTE | 2019-10-20 15:30 | NUR ---
DISCHARGE NOTED PATIENT DISCHARGED HOME WITH IN STABLE CONDITION. ALL BELONGINGS ACCOUNT FOR. MD AWARE OF ALL ABNORMAL LABS. DISCHARGE PROTOCOL FOLLOWED. DISCHARGE TEACHING PROVIDED TO PATIENT AND PATIENTS , VERBALIZED UNDERSTANDING. DISCHARGE PROTOCOL FOLLOWED. PERIPHERAL IV REMOVED WITH MINIMAL BLEEDING. ID BAND REMOVED. PATIENT ESCORTED TO CAR.
== END 2019-10-20 15:30 | disposition home or self-care (01) | DRG 312 ==
LOC: ER 22:30 → MED 10-19 00:03 → TELE 10-19 00:43
PROVIDERS: ADMIT Nurse Practitioner Acute Care; ATTEND Nurse Practitioner Acute Care
DX: R55 Syncope and collapse (principal); I69.351 Hemiplegia and hemiparesis following cerebral infarction affecting right dominant side; E44.0 Moderate protein-calorie malnutrition; R10.9 Unspecified abdominal pain; E66.01 Morbid (severe) obesity due to excess calories; E78.5 Hyperlipidemia, unspecified; I69.320 Aphasia following cerebral infarction; I10 Essential (primary) hypertension; E88.09 Other disorders of plasma-protein metabolism, not elsewhere classified; R79.89 Other specified abnormal findings of blood chemistry; R74.0 Nonspecific elevation of levels of transaminase and lactic acid dehydrogenase [LDH]; Z68.39 Body mass index [BMI] 39.0-39.9, adult; Z87.891 Personal history of nicotine dependence
CPT/HCPCS: 36415; 70450-TC; 71045-TC; 76700-TC; 80048-TC; 80053-TC; 80061-TC; 81000-TC; 83735-TC; 84100-TC; 84439-TC; 84443-TC; 84484-TC; 85025-TC; 87081-TC; 93307-TC; 97110-TC; 97116-TC; 97530-TC; 97535-TC; G0378; J1650; J7030

== ENCOUNTER 2020-11-14 04:07 | Inpatient (IN) | payer MEDICARE, OTHER ==
[~2020-11-14] VITALS: Ht 172.7 cm; Wt 112.7 kg
[~2020-11-14 04:07] MED LIST changes: -PIPE3.379 IV
--- NOTE | 2020-11-14 04:08 | NUR ---
PT BIB FROM HOME C/O NAUSEA AND VOMITING. PLACED IN BED 9 ON ADOPTION SOCIAL WORKER AND PULSE OX. ER MD AT BEDSIDE FOR EVAL. AWAITING ORDERS. LINE WAS ESTABLISHED LH 20G, BLOOD COLLECTED, SENT TO LAB. AWAITING ORDERS.
[2020-11-14] MEDS ORDERED: ONDANSETRON HCL/PF 4 MG/2 ML VIAL ONE ×2 (04:14→06:50)
[2020-11-14] MEDS ORDERED: ONDANSETRON HCL/PF 4 MG/2 ML VIAL IVP ONE (04:30)
[2020-11-14] MEDS ORDERED: IV NS 0.9% 1,000 ML BAG IV ONE (04:30)
--- NOTE | 2020-11-14 04:39 | NUR ---
UNABLE TO PROVIDE URINE SAMPLE
--- NOTE | 2020-11-14 04:43 | NUR ---
XRAY AT BEDSIDE
[2020-11-14 04:49] LABS: BASOPHILS # (AUTO) 0.1 /CMM (0.0-0.2); BASOPHILS % (AUTO) 0.7 % (0.0-2.0); EOSINOPHILS % (AUTO) 1.3 % (0.0-6.0); HEMATOCRIT 47 % (33-45); HEMOGLOBIN 15.4 g/dL (11.5-14.8); LYMPHOCYTES % (AUTO) 24.1 % (20.0-44.0); MEAN CORPUSCULAR HGB CONC 33 g/dl (31.0-36.0); MEAN CORPUSCULAR VOLUME 85 fL (82-100); MONOCYTES # (AUTO) 1.1 /CMM (0.1-1.30); MONOCYTES % (AUTO) 6.5 % (2.0-12.0); NEUTROPHILS # (AUTO) 11.2 /CMM (1.8-8.9); NEUTROPHILS % (AUTO) 67.4 % (43.0-81.0); PLATELET COUNT (AUTO) 302 /CMM (150-450); RED BLOOD CELL COUNT(AUTO) 5.52 MIL/uL (4.0-5.2); WHITE BLOOD COUNT (AUTO) 16.6 K/uL (4.3-11.0)
[2020-11-14 05:19] LABS: CALCIUM, SERUM 9.4 mg/dL (8.5-10.1); CARBON DIOXIDE 27 mmol/L (21-32); CHLORIDE 108 mmol/L (98-107); GLUCOSE 199 mg/dL (74-106); POTASSIUM 3.3 mmol/L (3.5-5.1); SODIUM SERUM 144 mmol/L (136-145); UREA NITROGEN, BLOOD 20 mg/dL (7-18)
[2020-11-14 05:24] LABS: ALANINE AMINOTRANSFERASE 26 U/L (12-78); ALBUMIN 3.5 g/dL (3.4-5.0); ALKALINE PHOSPHATASE 100 U/L (46-116); ASPARTATE AMINOTRANSFERASE 19 U/L (15-37); BILIRUBIN,DIRECT 0.1 mg/dL (0.0-0.2); BILIRUBIN,TOTAL 0.3 mg/dL (0.2-1.0); LIPASE 106 U/L (73-393); TOTAL PROTEIN, SERUM 7.6 g/dL (6.4-8.2)
[2020-11-14] MEDS ORDERED: METOCLOPRAMIDE HCL 10 MG/2 ML VIAL ONE (05:27)
--- NOTE | 2020-11-14 05:27 | NUR ---
NOTED PT VOMITING. ER MD AWARE.
[2020-11-14] MEDS ORDERED: METOCLOPRAMIDE HCL 10 MG/2 ML VIAL IV ONE (05:30)
--- NOTE | 2020-11-14 05:39 | NUR ---
PT TRANSPORTED TO RADIOLOGY FOR CT.
--- NOTE | 2020-11-14 05:55 | NUR ---
PT BROUGHT BACK FROM CT. PLACED ON 2L NC. SAT 98%. UNABLE TO PROVIDE URINE SAMPLE.
--- NOTE | 2020-11-14 06:17 | NUR ---
URINE SENT TO LAB.
--- NOTE | 2020-11-14 06:17 | NUR ---
José Luis mcclellan in [facility] - 11/14/20 at 0617 by NA URINE COLLECTED, SENT TO LAB.
[2020-11-14 06:30] LABS: BILIRUBIN,URINE NEGATIVE (NEGATIVE); COLOR,URINE YELLOW (YELLOW); LEUKOCYTE ESTERASE ,URINE NEGATIVE (NEGATIVE); NITRITE, URINE NEGATIVE (NEGATIVE); PH,URINE 5.5 (5.0-8.0); PROTEIN,URINE NEGATIVE (NEGATIVE); UGLUCOSE NEGATIVE (NEGATIVE); UROBILINOGEN,URINE 0.2 EU/dL (0.2)
--- NOTE | 2020-11-14 06:54 | NUR ---
PT NOTED TO VOMIT AGAIN, CHANGE INTO ANOTHER GOWN. ER AWARE.
[2020-11-14 06:56] LABS: BACTERIA,URINE Many /HPF (None Seen); RBC,URINE R /HPF (0-2); SQUAMOUS EPITHELIAL CELL,UR Rare /HPF (None Seen); WBC,URINE F /HPF (0-3)
[2020-11-14] MEDS ORDERED: ONDANSETRON HCL/PF 4 MG/2 ML VIAL IV ONE (07:00)
[2020-11-14] MEDS ORDERED: CEFTRIAXONE 1GM BAG (ER ONLY) 100 ML IV ONE (07:11)
[2020-11-14] MEDS ORDERED: CEFTRIAXONE 1GM BAG (ER ONLY) 1 GM/50 ML PIGGYBACK IV ONE (07:30)
--- NOTE | 2020-11-14 07:47 | NUR ---
MOVE SHEET SUBMITTED
--- NOTE | 2020-11-14 07:53 | NUR ---
Patient awake non distress her @ bedside vitals taken and filed continue to monitor .
--- NOTE | 2020-11-14 09:02 | NUR ---
covid negative per lab
--- NOTE | 2020-11-14 09:25 | NUR ---
GOT BED 321-2
--- NOTE | 2020-11-14 09:29 | NUR ---
[facility] CALLED DIFFERENTIAL REPAIRER PAGED.
--- NOTE | 2020-11-14 10:08 | NUR ---
Leif Maynor son [phone] .
--- NOTE | 2020-11-14 10:22 | NUR ---
report given to Raquel ECHEVERRIA for eleonora
[2020-11-14 10:50] VITALS: BP 145/71
--- NOTE | 2020-11-14 10:50 | NUR ---
MS RN NOTES PATIENT RECEIVED VIA GURNEY FROM ER. PATIENT ALERT AND ORIENTED X 1, UNDERSTANDS BELARUSIAN, FARSI. PATIENT ON ROOM AIR WITH NO RESPIRATORY DISTRESS NOTED. PATIENT IV ACCESS INTACT AND PATENT. SKIN INTACT, WARM AND DRY TO TOUCH. PATIENT PRESENTING WITH NO SIGNS OF PAIN. PATIENT PRESENTING SIGNS OF NAUSEA PROVIDED EMESIS BAG. WILL AWAIT FOR MD AND ORDERS. SAFETY PRECAUTIONS IMPLEMENTED WITH BED LOCKED, BILATERAL SIDE RAILS UP, BED ALARM ON, BED IN THE LOWEST POSITION AND CALL LIGHT WITHIN EASY REACH. WILL CONTINUE TO MONITOR PATIENT.
[2020-11-14] MEDS ORDERED: MAG HYDROX/AL HYDROX/SIMETH 30 ML UDC PO PRN (12:00)
[2020-11-14] MEDS ORDERED: ACETAMINOPHEN 325 MG TABLET PO PRN (12:00)
[2020-11-14] MEDS ORDERED: HYDROCODONE/APAP 5/325MG TABLET PO PRN (12:00)
[2020-11-14] MEDS ORDERED: MAGNESIUM HYDROXIDE 30 ML UDC PO PRN (12:00)
[2020-11-14] MEDS ORDERED: DOCUSATE SODIUM 250 MG CAPSULE PO PRN (12:00)
[2020-11-14] MEDS ORDERED: ZOLPIDEM TARTRATE 5 MG TABLET PO PRN (12:00)
[2020-11-14] MEDS ORDERED: Z GUARD REMEDY 2 OZ OINT TP PRN (12:00)
[2020-11-14] MEDS: ENOXAPARIN SODIUM 40 MG/0.4 ML DISP.SYRIN SQ SCH (12:34)
[2020-11-14] MEDS: IV 1/2NS 1000 ML 1,000 ML IV PRN (12:36)
[2020-11-14] MEDS: ONDANSETRON HCL/PF 4 MG/2 ML VIAL IVP PRN ×2 (12:36→19:24)
[2020-11-14] MEDS: ASPIRIN 81 MG TAB.CHEW PO SCH (12:36)
--- NOTE | 2020-11-14 12:45 | NUR ---
MS RN NOTES PATIENT HAD AN EPISODE OF VOMITING, PROVIDED COMFORT MEASURES AND ELEVATED HOB. ADMINISTERED PRN ZOFRAN ORDERED WILL CONTINUE TO MONITOR PATIENT.
[2020-11-14] MEDS ORDERED: POTASSIUM CHLORIDE 20 MEQ TAB.PRT.SR PO ONE (15:30)
[2020-11-14 16:08] VITALS: BP 143/72
[2020-11-14] MEDS: ATORVASTATIN 10 MG TABLET PO SCH (17:10)
[2020-11-14] MEDS: AMLODIPINE BESYLATE 5 MG TABLET PO SCH (17:11)
--- NOTE | 2020-11-14 19:30 | NUR ---
RN OPENING NOTES Patient was last seen sleeping in her bed. Patient is A/O x1-2. Patient is on room air with no respiratory distress noted. Patient has an iv access on her left hand gauge #20, which is intact and patent. Patient has no signs and symptoms of acute distress. Safety measures in place: Bed locked, bed alarm on, side rails up x 3, and call light within easy reach of the patient. Will continue to monitor the patient.
--- NOTE | 2020-11-14 19:47 | NUR ---
MS RN NOTES PATIENT IN BED RESTING COMFORTABLY. ON NASAL CANNULA 2 LITER AT THIS TIME, DUE TO HAVING AN EPISODE OF VOMITING. ADMINISTERED ZOFRAN ORDERED. PATIENT SKIN KEPT CLEAN, WARM AND DRY TO TOUCH, IV ACCESS INTACT AND PATENT CURRENTLY INFUSING IV FLUIDS. MET ALL OF PATIENT'S NEEDS. PATIENT PRESENTS WITH NO PAIN OR DISCOMFORT AT THIS TIME. SAFETY PRECAUTIONS IMPLEMENTED WITH BED LOCKED, BILATERAL SIDE RAILS UP, BED ALARM ON, BED IN LOWEST POSITIONS, AND WILL ENDORSE PLAN OF CARE TO UPCOMING RN.
[2020-11-14 20:21] VITALS: BP 150/74
[2020-11-15] MEDS: ONDANSETRON HCL/PF 4 MG/2 ML VIAL IVP PRN (01:24)
[2020-11-15] MEDS: IV 1/2NS 1000 ML 1,000 ML IV PRN ×2 (05:39→18:07)
--- NOTE | 2020-11-15 06:40 | NUR ---
RN CLOSING NOTES Patient was last seen sleeping in her bed. Patient is A/O x1-2. Patient is on room air with no respiratory distress noted. Patient has an iv access on her left hand gauge #20, which is intact and patent. Patient has no signs and symptoms of acute distress. Safety measures in place: Bed locked, bed alarm on, side rails up x 3, and call light within easy reach of the patient. Will endorse care to the day shift nurse.
[2020-11-15 06:53] LABS: BASOPHILS # (AUTO) 0.1 /CMM (0.0-0.2); BASOPHILS % (AUTO) 0.5 % (0.0-2.0); EOSINOPHILS % (AUTO) 0.1 % (0.0-6.0); HEMATOCRIT 44 % (33-45); HEMOGLOBIN 14.4 g/dL (11.5-14.8); LYMPHOCYTES # (AUTO) 1.3 /CMM (0.8-4.8); MEAN CORPUSCULAR HGB CONC 33 g/dl (31.0-36.0); MEAN CORPUSCULAR VOLUME 85 fL (82-100); MONOCYTES # (AUTO) 0.9 /CMM (0.1-1.30); MONOCYTES % (AUTO) 7.2 % (2.0-12.0); NEUTROPHILS # (AUTO) 9.9 /CMM (1.8-8.9); NEUTROPHILS % (AUTO) 81.2 % (43.0-81.0); PLATELET COUNT (AUTO) 251 /CMM (150-450); RED BLOOD CELL COUNT(AUTO) 5.21 MIL/uL (4.0-5.2); WHITE BLOOD COUNT (AUTO) 12.2 K/uL (4.3-11.0)
--- NOTE | 2020-11-15 07:15 | NUR ---
MS RN OPENING NOTES RECEIVED PATIENT OM BED WITH NO SIGN OF DISTRESS. PATIENT WAKE UP ON SIMPLE CALLS AND IS ALERT AND ORIENTED X 1-2. SPEAKS LAO BUT UNDERSTANDS LUXEMBOURGISH. PATIENT HAVE APHASIA WITH LIMITED VOCABULARY. PATIENT KEPT ON OXYGEN AT 2LITERS PER MINUTE SATURATING AT 96-97%. WITH PERIPHERAL IV LINE ON THE LEFT HNAD G20 WITH IV FLUID OF NS AT 75ML/HR. COMFORT MEASURES PROVIDED. ON NORMAL BODY ALIGNMENT. WITH EVEN AND UNLABORED BREATHING, WITH NO SIGNS OF RESPIRATORY DISTRESS. BED LOCKED AND LOWERED FOR SAFETY. CALL LIGHT WITHIN REACH AT ALL TIMES. WILL CONTINUE TO MONITOR PATIENT.
[2020-11-15 07:32] LABS: THYROID STIMULATING HORMONE 0.841 uIU/mL (0.358-3.74)
[2020-11-15 07:34] LABS: CALCIUM, SERUM 8.8 mg/dL (8.5-10.1); CREATININE 0.8 mg/dL (0.6-1.3); MAGNESIUM 2.1 mg/dL (1.8-2.4); PHOSPHORUS 3.1 mg/dL (2.5-4.9)
[2020-11-15 08:24] VITALS: BP 139/76
[2020-11-15] MEDS: PANTOPRAZOLE 40 MG TABLET.DR PO SCH (08:27)
[2020-11-15] MEDS: ASPIRIN 81 MG TAB.CHEW PO SCH (08:27)
[2020-11-15] MEDS: ATENOLOL 50 MG TABLET PO SCH (08:28)
[2020-11-15] MEDS: CEFTRIAXONE 1 G in IV D5W 50 ML IV SCH (08:57)
[2020-11-15] MEDS: ENOXAPARIN SODIUM 40 MG/0.4 ML DISP.SYRIN SQ SCH (09:07)
--- NOTE | 2020-11-15 12:40 | NUR ---
MS RN NOTES PATIENT SEEN BY DR. HAMMOND. PATIENT'S AT BEDSIDE.
[2020-11-15 16:22] VITALS: BP 126/70
[2020-11-15] MEDS: AMLODIPINE BESYLATE 5 MG TABLET PO SCH (18:20)
[2020-11-15] MEDS: ATORVASTATIN 10 MG TABLET PO SCH (18:20)
--- NOTE | 2020-11-15 19:30 | NUR ---
MS RN OPENING NOTES PATIENT RESTING IN BED, ALERT/ORIENTED X 1-2, PATIENT IS [place]OM[place] ISLANDER SPEAKING BUT ABLE TO UNDERSTAND SOME ALBANIAN. PATIENT HAS APHASIA WITH LIMITED VOCABULARY, ABLE TO ANSWER YES/NO QUESTIONS. PATIENT STABLE ON 2 LPM OF OXYGEN VIA NC, NO S/S OF DISTRESS OR SHORTNESS OF BREATH NOTED. 1/2 NS RUNNING @ 75 ML/HR ON RIGHT HAND. NO COMPLAINTS OF PAIN AT THIS TIME. PATIENT APPEARS COMFORTABLE AND RELAXED. SAFETY MEASURES IN PLACE, CALL LIGHT WITHIN REACH, BED ALARM ON, BED LOCKED IN LOWEST POSITION. WILL CONTINUE TO MONITOR. WILL CONTINUE PLAN OF CARE
[2020-11-15 20:00] VITALS: BP 121/63
[2020-11-16 06:11] LABS: BASOPHILS % (AUTO) 0.5 % (0.0-2.0); EOSINOPHILS % (AUTO) 1.7 % (0.0-6.0); HEMATOCRIT 42 % (33-45); HEMOGLOBIN 13.7 g/dL (11.5-14.8); LYMPHOCYTES # (AUTO) 2.1 /CMM (0.8-4.8); LYMPHOCYTES % (AUTO) 22.1 % (20.0-44.0); MEAN CORPUSCULAR HGB CONC 33 g/dl (31.0-36.0); MEAN CORPUSCULAR VOLUME 85 fL (82-100); MONOCYTES # (AUTO) 0.8 /CMM (0.1-1.30); MONOCYTES % (AUTO) 8.8 % (2.0-12.0); NEUTROPHILS # (AUTO) 6.4 /CMM (1.8-8.9); NEUTROPHILS % (AUTO) 66.9 % (43.0-81.0); PLATELET COUNT (AUTO) 215 /CMM (150-450); RED BLOOD CELL COUNT(AUTO) 4.89 MIL/uL (4.0-5.2); WHITE BLOOD COUNT (AUTO) 9.5 K/uL (4.3-11.0)
[2020-11-16 06:50] LABS: ALBUMIN 2.8 g/dL (3.4-5.0); BILIRUBIN,TOTAL 0.6 mg/dL (0.2-1.0); CALCIUM, SERUM 8.3 mg/dL (8.5-10.1); CREATININE 0.8 mg/dL (0.6-1.3); PHOSPHORUS 2.6 mg/dL (2.5-4.9); POTASSIUM 3.7 mmol/L (3.5-5.1); TOTAL PROTEIN, SERUM 6.3 g/dL (6.4-8.2)
--- NOTE | 2020-11-16 07:00 | NUR ---
MS RN CLOSING NOTES PATIENT SLEEPING IN BED, EASILY AWAKENED, ALERT/ORIENTED X 1-2, PATIENT IS BENGALI SPEAKING BUT ABLE TO UNDERSTAND SOME DJIBOUTIAN. PATIENT HAS APHASIA WITH LIMITED VOCABULARY, ABLE TO ANSWER YES/NO QUESTIONS. PATIENT STABLE ON 2 LPM OF OXYGEN VIA NC, NO S/S OF DISTRESS OR SHORTNESS OF BREATH NOTED. 1/2 NS RUNNING @ 75 ML/HR ON RIGHT HAND #24G. NO COMPLAINTS OF PAIN AT THIS TIME, NO NAUSEA OR VOMITING THROUGHOUT SHIFT. MEDICATIONS GIVEN ORDERED AND PATIENT NEEDS MET THROUGHOUT SHIFT. SAFETY MEASURES IN PLACE, CALL LIGHT WITHIN REACH, BED ALARM ON, BED LOCKED IN LOWEST POSITION. WILL ENDORSE TO DAY SHIFT NURSE FOR CONTINUITY OF CARE
[2020-11-16 08:00] VITALS: BP 130/73
[2020-11-16] MEDS: ENOXAPARIN SODIUM 40 MG/0.4 ML DISP.SYRIN SQ SCH (08:30)
[2020-11-16] MEDS: ATENOLOL 50 MG TABLET PO SCH (08:31)
[2020-11-16] MEDS: ASPIRIN 81 MG TAB.CHEW PO SCH (08:31)
[2020-11-16] MEDS: PANTOPRAZOLE 40 MG TABLET.DR PO SCH (08:32)
[2020-11-16] MEDS: IV 1/2NS 1000 ML 1,000 ML IV PRN (08:52)
[2020-11-16] MEDS: CEFTRIAXONE 1 G in IV D5W 50 ML IV SCH (08:53)
[2020-11-16] MEDS ORDERED: ASPIRIN 81 MG TAB.CHEW PO SCH (10:30)
--- NOTE | 2020-11-16 10:30 | NUR ---
m/s foreign car mechanic: md visit seen and examined by dr. huerta with new orders. orders acknowledged. pt for beth llanos today. pt for d'c planning per .
--- NOTE | 2020-11-16 14:00 | NUR ---
m/s corduroy cutting supervisor: p.t. eval p.t. eval and tx done at this time. at bedside. will continue to monitor.
--- NOTE | 2020-11-16 15:40 | NUR ---
m/s stitching machine feeder or offbearer: notes us lower ext venous completed with no evidence for deep venous thrombosis.
[2020-11-16 16:00] VITALS: BP 119/66
--- NOTE | 2020-11-16 17:00 | NUR ---
m/s teacher selection specialist: notes dinner served. hob elevated. at bedside. needs attended. no distress noted. will continue to monitor.
[2020-11-16] MEDS: ATORVASTATIN 10 MG TABLET PO SCH (17:02)
[2020-11-16] MEDS: AMLODIPINE BESYLATE 5 MG TABLET PO SCH (17:02)
--- NOTE | 2020-11-16 20:00 | NUR ---
MS RN OPENING NOTES PATIENT AWAKE IN BED, ALERT/ORIENTED X 2, PT IS LITHUANIAN SPEAKING BUT ABLE TO UNDERSTAND SOME NEPALI. PT HAS APHASIA WITH LIMITED VOCABULARY, ABLE TO ANSWER YES/NO QUESTIONS. PT STABLE ON 2 LPM OF OXYGEN VIA NC, NO S/S OF DISTRESS OR SHORTNESS OF BREATH NOTED. 1/2 NS RUNNING @ 75 ML/HR ON RIGHT HAND. NO COMPLAINTS OF PAIN AT THIS TIME. SAFETY MEASURES IN PLACE, CALL LIGHT WITHIN REACH, BED ALARM ON, SIDE RAILS UP X 3, BED LOCKED IN LOWEST POSITION. WILL CONTINUE TO MONITOR. WILL CONTINUE PLAN OF CARE
[2020-11-16 20:25] VITALS: BP 128/58
[2020-11-17] MEDS: IV 1/2NS 1000 ML 1,000 ML IV PRN (04:31)
--- NOTE | 2020-11-17 07:00 | NUR ---
MS RN CLOSING NOTES PATIENT SLEEPING IN BED, EASILY AWAKENED, ALERT/ORIENTED X 2, PATIENT IS FAROESE SPEAKING BUT ABLE TO UNDERSTAND SOME FRISIAN. PATIENT HAS APHASIA WITH LIMITED VOCABULARY, ABLE TO ANSWER YES/NO QUESTIONS. PATIENT STABLE ON ROOM AIR, NO S/S OF DISTRESS OR SHORTNESS OF BREATH NOTED. 1/2 NS RUNNING @ 75 ML/HR ON RIGHT HAND #24G. NO COMPLAINTS OF PAIN AT THIS TIME, NO NAUSEA OR VOMITING THROUGHOUT SHIFT. MEDICATIONS GIVEN ORDERED AND PATIENT NEEDS MET THROUGHOUT SHIFT. SAFETY MEASURES IN PLACE, CALL LIGHT WITHIN REACH, BED ALARM ON, BED LOCKED IN LOWEST POSITION. WILL ENDORSE TO DAY SHIFT NURSE FOR CONTINUITY OF CARE
--- NOTE | 2020-11-17 07:30 | NUR ---
MS RN OPENING NOTES RECEIVED PATIENT IN BED, AWAKE, ALERT/ORIENTED X 2, PT IS BANGLADESHI SPEAKING BUT ABLE TO UNDERSTAND SOME BELARUSIAN. NOTED WITH APHASIA WITH LIMITED VOCABULARY, ABLE TO ANSWER YES/NO QUESTIONS. NO S/S OF ACUTE DISTRESS NOTED. NOTED WITH IV LINE ON RIGHT HAND WITH AN ONGOING IVF OF 1/2 NS RUNNING @ 75 ML/HR. NO COMPLAINTS AND/OR S/SX OF PAIN NOTED AT THIS TIME. SAFETY MEASURES IN PLACE, BED ON LOWEST LOCKED POSITION, CALL LIGHT WITHIN REACH, BED ALARM ON, SIDE RAILS UP X 3. WILL CONTINUE TO MONITOR PATIENT'S STATUS.
[2020-11-17 08:00] VITALS: BP 107/58
[2020-11-17] MEDS: PANTOPRAZOLE 40 MG TABLET.DR PO SCH (08:24)
[2020-11-17] MEDS: ASPIRIN 81 MG TAB.CHEW PO SCH (08:29)
[2020-11-17] MEDS: ATENOLOL 50 MG TABLET PO SCH (08:31)
[2020-11-17] MEDS: ENOXAPARIN SODIUM 40 MG/0.4 ML DISP.SYRIN SQ SCH (08:40)
[2020-11-17 16:07] VITALS: BP 112/66
[2020-11-17] MEDS: ATORVASTATIN 10 MG TABLET PO SCH (17:12)
[2020-11-17] MEDS: AMLODIPINE BESYLATE 5 MG TABLET PO SCH (17:13)
--- NOTE | 2020-11-17 18:26 | NUR ---
MS RN CLOSING NOTES PATIENT IN BED, AWAKE, A&O X 2-3, VERBALLY RESPONSIVE. RESPONDS TO SIMPLE QUESTIONS ANSWERABLE BY YES OR NO. WITH AN ONGOING IVF OF 0.45%NS 1L X 75CC/HR INFUSING WELL ON PATIENT'S RIGHT HAND. NO REDNESS NOTED, NO S/SX OF INFILTRATION NOTED. NO COMPLAINTS OF PAIN AT THIS TIME. ON RA TOLERATING WELL, NO SOB NOTED, NO S/SX OF RESPIRATORY DISTRESS NOTED. NO COMPLAINTS OF N/V AT THIS TIME. SAFETY PRECAUTIONS OBSERVED AND MAINTAINED DURING THE SHIFT: BED ON LOWEST LOCKED POSITION, KEPT CALL LIGHT WITHIN EASY REACH. ENDORSED TO OTR TRUCK DRIVER NURSE FOR CONTINUITY OF CARE.
[2020-11-17 20:00] VITALS: BP 140/64
--- NOTE | 2020-11-18 01:00 | NUR ---
MS RN NOTES SLEEPING,KEPT WARM AND COMFORTABLE.
--- NOTE | 2020-11-18 06:50 | NUR ---
MS RN NOTES NO SIGNIFICANT CHANGE IN STATUS.FOR DISCHARGE PLANNING TO [facility] V/S SNF,CASE MANAGEMENT FOR LOOKING FOR PLACEMENT.
[2020-11-18] MEDS: PANTOPRAZOLE 40 MG TABLET.DR PO SCH (07:26)
--- NOTE | 2020-11-18 07:40 | NUR ---
MS RN OPENING NOTES RECEIVED PATIENT IN BED, AWAKE, A&O X 2-3, VERBALLY RESPONSIVE. RESPONDS TO SIMPLE QUESTIONS ANSWERABLE BY YES OR NO. WITH AN ONGOING IVF OF 0.45%NS 1L X 75CC/HR INFUSING WELL ON PATIENT'S RIGHT HAND. NO REDNESS NOTED, NO S/SX OF INFILTRATION NOTED. NO COMPLAINTS OF PAIN AT THIS TIME. ON RA TOLERATING WELL, NO SOB NOTED, NO S/SX OF RESPIRATORY DISTRESS NOTED. NO COMPLAINTS OF N/V AT THIS TIME. SAFETY PRECAUTIONS OBSERVED AND MAINTAINED: BED ON LOWEST LOCKED POSITION, KEPT CALL LIGHT WITHIN EASY REACH. WILL CONTINUE TO MONITOR PATIENT'S CURRENT STATUS.
[2020-11-18 08:00] VITALS: BP 134/58
[2020-11-18] MEDS: ASPIRIN 81 MG TAB.CHEW PO SCH (08:13)
[2020-11-18] MEDS: ENOXAPARIN SODIUM 40 MG/0.4 ML DISP.SYRIN SQ SCH (08:16)
[2020-11-18] MEDS: ATENOLOL 50 MG TABLET PO SCH (08:17)
--- NOTE | 2020-11-18 08:18 | NUR ---
Next of kin contact attempt: NEETA called the pt.'s daughter, Cecilio Escudero [phone] to try and set up communication with Bryan Mancia DNP. However, no option to leave voicemail. NEETA also called the pt.'s , Katlin [phone] and left voicemail with SW contact number. SW will be available as needed.
[2020-11-18 16:00] VITALS: BP 141/70
--- NOTE | 2020-11-18 17:21 | NUR ---
SENIOR DENTIST NOTES DISCHARGED PATIENT TO [facility], REPORT CALLED IN JACKI YOUNG AND PATIENT WILL GO TO ROOM 315. PATIENT MEDICALLY STABLE AND CLEARED FOR DISCHARGE BY DR NOE. ALL DISCHARGE EDUCATION/TEACHINGS DONE WITH PATIENT AND . MEDICATIONS EXPLAINED TO , BOTH VERBALIZED UNDERSTANDING. ALL BELONGINGS SIGNED, ACCOUNTED FOR AND WITH PATIENT. IV ACCESS REMOVED, PRESSURE APPLIED, SECURED WITH DRY GAUZE AND TAPE, NO BLEEDING NOTED. PATIENT TRANSPORTED BY [facility] OUT OF UNIT IN STABLE CONDITION AT THIS TIME BY [facility] EMT'SRosalind GORE, CHARGE NURSE AND DR NOE AWARE.
== END 2020-11-18 17:23 | DRG 641 ==
LOC: ER 04:09 → MED 10:31
PROVIDERS: ATTEND Nurse Practitioner Acute Care
DX: E86.0 Dehydration (principal); D68.59 Other primary thrombophilia; I69.351 Hemiplegia and hemiparesis following cerebral infarction affecting right dominant side; I10 Essential (primary) hypertension; K76.0 Fatty (change of) liver, not elsewhere classified; E78.5 Hyperlipidemia, unspecified; E66.01 Morbid (severe) obesity due to excess calories; Z68.37 Body mass index [BMI] 37.0-37.9, adult; I69.320 Aphasia following cerebral infarction; Z79.82 Long term (current) use of aspirin; Z79.899 Other long term (current) drug therapy; Z74.09 Other reduced mobility; M79.661 Pain in right lower leg; E27.8 Other specified disorders of adrenal gland; K57.30 Diverticulosis of large intestine without perforation or abscess without bleeding; Z90.710 Acquired absence of both cervix and uterus
CPT/HCPCS: 36415; 71045-TC; 80048-TC; 80053-TC; 80061-TC; 80076-TC; 81001; 83690-TC; 83735-TC; 83880; 84100-TC; 84443-TC; 84484-TC; 85025-TC; 85730-TC; 87081-TC; 87086-TC; 93307-TC; 93970-TC; 97116-TC; 97530-TC; C9803; G0378; J0696; J1650; J2405; J2765; J3490; J7030; J7050; J7060

== ENCOUNTER 2021-07-22 10:06 | Inpatient (IN) | payer MEDICARE, OTHER ==
[~2021-07-22] VITALS: Ht 160 cm; Wt 107.0 kg
[~2021-07-22 10:06] MED LIST changes: -ACET-2605 PO
[2021-07-22] MEDS ORDERED: CEFTRIAXONE 1GM BAG (ER ONLY) 50 ML IV ONE (10:30)
[2021-07-22] MEDS ORDERED: MORPHINE SULFATE INJ 2 MG/ML DISP.SYRIN IV ONE (10:30)
[2021-07-22] MEDS ORDERED: ACETAMINOPHEN ES 500 MG TABLET PO ONE (10:30)
[2021-07-22] MEDS ORDERED: AZITHROMYCIN 500 MG in IV D5W 250 ML IV ONE (10:30)
[2021-07-22] MEDS ORDERED: ONDANSETRON HCL/PF 4 MG/2 ML VIAL IVP ONE (10:30)
[2021-07-22] MEDS ORDERED: RIVA15TA PO (10:37)
[2021-07-22] MEDS ORDERED: ATOR20TA PO (10:37)
[2021-07-22] MEDS ORDERED: LINA72CA PO (10:37)
[2021-07-22 11:13] LABS: BASOPHILS # (AUTO) 0.1 K/uL (0.0-0.2); BASOPHILS % (AUTO) 0.4 % (0.0-2.0); EOSINOPHILS % (AUTO) 0.3 % (0.0-6.0); HEMATOCRIT 47 % (33-45); HEMOGLOBIN 15.6 g/dL (11.5-14.8); LYMPHOCYTES # (AUTO) 1.7 K/uL (0.8-4.8); LYMPHOCYTES % (AUTO) 8.3 % (20.0-44.0); MEAN CORPUSCULAR HGB CONC 33 g/dl (31.0-36.0); MEAN CORPUSCULAR VOLUME 83 fL (82-100); NEUTROPHILS # (AUTO) 16.2 K/uL (1.8-8.9); PLATELET COUNT (AUTO) 283 K/uL (150-450); RED BLOOD CELL COUNT(AUTO) 5.66 MIL/uL (4.0-5.2)
[2021-07-22] MEDS ORDERED: MORPHINE SULFATE INJ 4 MG/ML DISP.SYRIN ONE (11:27)
[2021-07-22] MEDS ORDERED: ONDANSETRON HCL/PF 4 MG/2 ML VIAL ONE (11:27)
[2021-07-22] MEDS ORDERED: ACETAMINOPHEN ES 500 MG TABLET ONE (11:28)
[2021-07-22 11:35] LABS: CALCIUM, SERUM 9.3 mg/dL (8.5-10.1); CARBON DIOXIDE 28 mmol/L (21-32); CHLORIDE 103 mmol/L (98-107); GLUCOSE 156 mg/dL (74-106); POTASSIUM 4.2 mmol/L (3.5-5.1); SODIUM SERUM 140 mmol/L (136-145); UREA NITROGEN, BLOOD 14 mg/dL (7-18)
[2021-07-22 11:44] LABS: ALANINE AMINOTRANSFERASE 20 U/L (12-78); ALBUMIN 3.1 g/dL (3.4-5.0); ALKALINE PHOSPHATASE 99 U/L (46-116); ASPARTATE AMINOTRANSFERASE 14 U/L (15-37); BILIRUBIN,DIRECT 0.2 mg/dL (0.0-0.2); BILIRUBIN,TOTAL 0.9 mg/dL (0.2-1.0)
[2021-07-22 11:49] LABS: BILIRUBIN,URINE NEGATIVE (NEGATIVE); COLOR,URINE YELLOW (YELLOW); LEUKOCYTE ESTERASE ,URINE NEGATIVE (NEGATIVE); NITRITE, URINE NEGATIVE (NEGATIVE); PROTEIN,URINE NEGATIVE (NEGATIVE); UGLUCOSE NEGATIVE (NEGATIVE); UROBILINOGEN,URINE 0.2 EU/dL (0.2)
[2021-07-22 12:23] LABS: BACTERIA,URINE Many /HPF (None Seen); RBC,URINE 0-2 /HPF (0-2); WBC,URINE 0-2 /HPF (0-3)
[2021-07-22 12:24] LABS: SQUAMOUS EPITHELIAL CELL,UR Few /HPF (None Seen)
[2021-07-22] MEDS ORDERED: ZOLPIDEM TARTRATE 5 MG TABLET PO PRN (13:30)
[2021-07-22] MEDS ORDERED: Z GUARD REMEDY 4 OZ OINT TP PRN (13:30)
[2021-07-22] MEDS ORDERED: ENOXAPARIN SODIUM 40 MG/0.4 ML DISP.SYRIN SQ SCH (13:30)
[2021-07-22] MEDS ORDERED: ONDANSETRON HCL/PF 4 MG/2 ML VIAL IVP PRN (13:30)
[2021-07-22] MEDS ORDERED: MAGNESIUM HYDROXIDE 30 ML UDC PO PRN (13:30)
[2021-07-22] MEDS ORDERED: DOCUSATE SODIUM 250 MG CAPSULE PO PRN (13:30)
[2021-07-22] MEDS ORDERED: ACETAMINOPHEN 325 MG TABLET PO PRN (13:30)
[2021-07-22] MEDS ORDERED: MAG HYDROX/AL HYDROX/SIMETH 30 ML UDC PO PRN (13:30)
[2021-07-22] MEDS: VANCOMYCIN 0.75 GM in IV D5W 250 ML IV SCH (16:35)
[2021-07-22] MEDS: RIVAROXABAN 10 MG TABLET PO SCH (17:13)
[2021-07-22] MEDS ORDERED: AMLODIPINE BESYLATE 5 MG TABLET ONE (18:29)
[2021-07-22] MEDS: AMLODIPINE BESYLATE 5 MG TABLET PO SCH (18:29)
[2021-07-22 20:00] VITALS: BP 107/56
[2021-07-22] MEDS: IV NS 0.9% 1,000 ML IV PRN (20:20)
[2021-07-22] MEDS: ATORVASTATIN 10 MG TABLET PO SCH (22:52)
[2021-07-23] VITALS: BP 114/79
[2021-07-23 04:00] VITALS: BP 110/66
[2021-07-23] MEDS: VANCOMYCIN 0.75 GM in IV D5W 250 ML IV SCH ×2 (04:22→15:19)
[2021-07-23 07:42] LABS: BASOPHILS % (AUTO) 0.2 % (0.0-2.0); EOSINOPHILS % (AUTO) 1.6 % (0.0-6.0); HEMATOCRIT 44 % (33-45); HEMOGLOBIN 14.3 g/dL (11.5-14.8); LYMPHOCYTES % (AUTO) 12.9 % (20.0-44.0); MEAN CORPUSCULAR HGB CONC 33 g/dl (31.0-36.0); MEAN CORPUSCULAR VOLUME 84 fL (82-100); MONOCYTES # (AUTO) 1.5 K/uL (0.1-1.30); MONOCYTES % (AUTO) 9.3 % (2.0-12.0); PLATELET COUNT (AUTO) 246 K/uL (150-450); RED BLOOD CELL COUNT(AUTO) 5.19 MIL/uL (4.0-5.2); WHITE BLOOD COUNT (AUTO) 15.8 K/uL (4.3-11.0)
[2021-07-23 08:00] VITALS: BP 110/59
[2021-07-23 08:19] LABS: CALCIUM, SERUM 8.5 mg/dL (8.5-10.1); CREATININE 0.7 mg/dL (0.6-1.3); MAGNESIUM 2.2 mg/dL (1.8-2.4); PHOSPHORUS 3.3 mg/dL (2.5-4.9); POTASSIUM 3.7 mmol/L (3.5-5.1)
[2021-07-23] MEDS: ATENOLOL 50 MG TABLET PO SCH (08:43)
[2021-07-23] MEDS: ASPIRIN 81 MG TAB.CHEW PO SCH (08:43)
[2021-07-23] MEDS: CEFTRIAXONE 1 G in IV D5W 50 ML IV SCH (10:06)
[2021-07-23 12:00] VITALS: BP 110/60
[2021-07-23 16:00] VITALS: BP 96/61
[2021-07-23] MEDS: RIVAROXABAN 10 MG TABLET PO SCH (16:28)
[2021-07-23] MEDS: AMLODIPINE BESYLATE 5 MG TABLET PO SCH (17:01)
[2021-07-23 20:00] VITALS: BP_SYST 105; BP_SYST 125; BP_DIAS 73
[2021-07-23] MEDS: ATORVASTATIN 10 MG TABLET PO SCH (21:54)
[2021-07-23] MEDS: IV NS 0.9% 1,000 ML IV PRN (22:39)
[2021-07-24] VITALS: BP 108/67
[2021-07-24] MEDS: VANCOMYCIN 0.75 GM in IV D5W 250 ML IV SCH ×2 (03:14→16:56)
[2021-07-24 04:00] VITALS: BP 122/67
[2021-07-24 06:56] LABS: CALCIUM, SERUM 8.6 mg/dL (8.5-10.1); CREATININE 0.8 mg/dL (0.6-1.3); POTASSIUM 3.7 mmol/L (3.5-5.1)
[2021-07-24 07:03] LABS: BASOPHILS # (AUTO) 0.1 K/uL (0.0-0.2); BASOPHILS % (AUTO) 0.5 % (0.0-2.0); EOSINOPHILS % (AUTO) 1.8 % (0.0-6.0); HEMATOCRIT 46 % (33-45); HEMOGLOBIN 14.9 g/dL (11.5-14.8); LYMPHOCYTES # (AUTO) 1.8 K/uL (0.8-4.8); LYMPHOCYTES % (AUTO) 14.8 % (20.0-44.0); MEAN CORPUSCULAR HGB CONC 33 g/dl (31.0-36.0); MEAN CORPUSCULAR VOLUME 84 fL (82-100); MONOCYTES # (AUTO) 1.4 K/uL (0.1-1.30); MONOCYTES % (AUTO) 11.4 % (2.0-12.0); NEUTROPHILS # (AUTO) 8.6 K/uL (1.8-8.9); NEUTROPHILS % (AUTO) 71.5 % (43.0-81.0); PLATELET COUNT (AUTO) 251 K/uL (150-450); RED BLOOD CELL COUNT(AUTO) 5.44 MIL/uL (4.0-5.2)
[2021-07-24] MEDS: ASPIRIN 81 MG TAB.CHEW PO SCH (09:04)
[2021-07-24] MEDS: ATENOLOL 50 MG TABLET PO SCH (09:05)
[2021-07-24] MEDS: CEFTRIAXONE 1 G in IV D5W 50 ML IV SCH (11:18)
[2021-07-24] MEDS: AMLODIPINE BESYLATE 5 MG TABLET PO SCH (17:27)
[2021-07-24] MEDS: RIVAROXABAN 10 MG TABLET PO SCH (17:28)
[2021-07-24] MEDS: ATORVASTATIN 10 MG TABLET PO SCH (22:30)
[2021-07-25] MEDS ORDERED: VANCOMYCIN 1.25 GM in IV D5W 250 ML IV SCH (04:00)
[2021-07-25 07:27] LABS: CALCIUM, SERUM 9.6 mg/dL (8.5-10.1); CREATININE 0.9 mg/dL (0.6-1.3); POTASSIUM 3.6 mmol/L (3.5-5.1)
[2021-07-25 07:30] LABS: BASOPHILS # (AUTO) 0.1 K/uL (0.0-0.2); BASOPHILS % (AUTO) 0.5 % (0.0-2.0); EOSINOPHILS % (AUTO) 0.2 % (0.0-6.0); HEMATOCRIT 49 % (33-45); HEMOGLOBIN 16.1 g/dL (11.5-14.8); LYMPHOCYTES # (AUTO) 1.5 K/uL (0.8-4.8); LYMPHOCYTES % (AUTO) 9.1 % (20.0-44.0); MEAN CORPUSCULAR HGB CONC 33 g/dl (31.0-36.0); MEAN CORPUSCULAR VOLUME 83 fL (82-100); MONOCYTES # (AUTO) 1.7 K/uL (0.1-1.30); MONOCYTES % (AUTO) 10.4 % (2.0-12.0); NEUTROPHILS # (AUTO) 13.2 K/uL (1.8-8.9); NEUTROPHILS % (AUTO) 79.8 % (43.0-81.0); PLATELET COUNT (AUTO) 395 K/uL (150-450); RED BLOOD CELL COUNT(AUTO) 5.86 MIL/uL (4.0-5.2); WHITE BLOOD COUNT (AUTO) 16.5 K/uL (4.3-11.0)
[2021-07-25 08:00] VITALS: BP 123/70
[2021-07-25] MEDS: ATENOLOL 50 MG TABLET PO SCH (08:11)
[2021-07-25] MEDS: ASPIRIN 81 MG TAB.CHEW PO SCH (08:11)
[2021-07-25] MEDS ORDERED: CEFAZOLIN 1 GM in IV D5W 50 ML IV SCH (11:00)
[2021-07-25] MEDS: CEFTRIAXONE 2 G in IV D5W 100 ML IV SCH (14:23)
[2021-07-25 16:00] VITALS: BP 117/70
[2021-07-25] MEDS: AMLODIPINE BESYLATE 5 MG TABLET PO SCH (17:48)
[2021-07-25] MEDS: RIVAROXABAN 10 MG TABLET PO SCH (17:52)
[2021-07-25 20:00] VITALS: BP 111/64
[2021-07-25 20:45] VITALS: BP 111/64
[2021-07-25] MEDS: ATORVASTATIN 10 MG TABLET PO SCH (21:06)
[2021-07-26 07:28] LABS: BASOPHILS # (AUTO) 0.1 K/uL (0.0-0.2); BASOPHILS % (AUTO) 0.8 % (0.0-2.0); EOSINOPHILS % (AUTO) 3.5 % (0.0-6.0); HEMATOCRIT 44 % (33-45); HEMOGLOBIN 14.4 g/dL (11.5-14.8); LYMPHOCYTES # (AUTO) 1.9 K/uL (0.8-4.8); LYMPHOCYTES % (AUTO) 20.7 % (20.0-44.0); MEAN CORPUSCULAR HGB CONC 33 g/dl (31.0-36.0); MEAN CORPUSCULAR VOLUME 83 fL (82-100); MONOCYTES % (AUTO) 10.7 % (2.0-12.0); NEUTROPHILS % (AUTO) 64.3 % (43.0-81.0); PLATELET COUNT (AUTO) 318 K/uL (150-450); RED BLOOD CELL COUNT(AUTO) 5.27 MIL/uL (4.0-5.2); WHITE BLOOD COUNT (AUTO) 9.4 K/uL (4.3-11.0)
[2021-07-26 07:47] LABS: CALCIUM, SERUM 8.8 mg/dL (8.5-10.1); CREATININE 0.8 mg/dL (0.6-1.3); POTASSIUM 3.6 mmol/L (3.5-5.1)
[2021-07-26 08:00] VITALS: BP 106/66
[2021-07-26] MEDS: ATENOLOL 50 MG TABLET PO SCH (09:00)
[2021-07-26] MEDS: ASPIRIN 81 MG TAB.CHEW PO SCH (09:58)
[2021-07-26] MEDS: CEFTRIAXONE 2 G in IV D5W 100 ML IV SCH (13:08)
[2021-07-26 16:00] VITALS: BP 126/61
[2021-07-26] MEDS ORDERED: CEPH500C2 PO (16:04)
[2021-07-26] MEDS: RIVAROXABAN 10 MG TABLET PO SCH (16:30)
[2021-07-26 17:17] VITALS: BP 126/61
[2021-07-26] MEDS: AMLODIPINE BESYLATE 5 MG TABLET PO SCH (17:17)
== END 2021-07-26 20:11 | DRG 871 ==
LOC: ER 10:18 → TRANSITION 15:12 → TELE 18:13 → MED 07-24 15:42
PROVIDERS: ADMIT Nurse Practitioner Acute Care; ATTEND Student in an Organized Health Care Education/Training Program
DX: A41.9 Sepsis, unspecified organism (principal); G93.41 Metabolic encephalopathy; I50.33 Acute on chronic diastolic (congestive) heart failure; L03.115 Cellulitis of right lower limb; L03.116 Cellulitis of left lower limb; N39.0 Urinary tract infection, site not specified; E87.2 Acidosis; I69.351 Hemiplegia and hemiparesis following cerebral infarction affecting right dominant side; I48.91 Unspecified atrial fibrillation; I11.0 Hypertensive heart disease with heart failure; E78.5 Hyperlipidemia, unspecified; Z20.822 Contact with and (suspected) exposure to COVID-19; Z79.01 Long term (current) use of anticoagulants; Z79.82 Long term (current) use of aspirin; Z79.899 Other long term (current) drug therapy; Z68.37 Body mass index [BMI] 37.0-37.9, adult; E66.01 Morbid (severe) obesity due to excess calories; B96.20 Unspecified Escherichia coli [E. coli] as the cause of diseases classified elsewhere; I69.320 Aphasia following cerebral infarction; Z87.440 Personal history of urinary (tract) infections
CPT/HCPCS: 36415; 71045-TC; 80048-TC; 80076-TC; 80202-TC; 81001; 83605-TC; 83735-TC; 83880; 84100-TC; 84484-TC; 85025-TC; 85378-TC; 85730-TC; 87040-TC; 87081-TC; 87086-TC; 87186-TC; 93307-TC; 97116-TC; 97530-TC; C9803; G0378; J0456; J0690; J0696; J2270; J2405; J3370; J7030; J7060

== ENCOUNTER 2022-02-05 19:19 | Inpatient (IN) | payer MEDICARE, OTHER ==
[~2022-02-05] VITALS: Ht 167.6 cm; Wt 110.7 kg
[~2022-02-05 19:19] MED LIST changes: -ATOR10TA PO; +ATOR20TA PO; +CEPH500C2 PO; +LINA72CA PO; +RIVA15TA PO
[2022-02-05 20:55] LABS: BASOPHILS # (AUTO) 0.1 K/uL (0.0-0.2); BASOPHILS % (AUTO) 0.4 % (0.0-2.0); EOSINOPHILS % (AUTO) 0.2 % (0.0-6.0); HEMATOCRIT 46 % (33-45); HEMOGLOBIN 15.2 g/dL (11.5-14.8); LYMPHOCYTES # (AUTO) 1.8 K/uL (0.8-4.8); LYMPHOCYTES % (AUTO) 14.7 % (20.0-44.0); MEAN CORPUSCULAR HGB CONC 33 g/dl (31.0-36.0); MEAN CORPUSCULAR VOLUME 85 fL (82-100); MONOCYTES # (AUTO) 1.6 K/uL (0.1-1.30); MONOCYTES % (AUTO) 12.8 % (2.0-12.0); NEUTROPHILS # (AUTO) 8.9 K/uL (1.8-8.9); NEUTROPHILS % (AUTO) 71.9 % (43.0-81.0); PLATELET COUNT (AUTO) 238 K/uL (150-450); RED BLOOD CELL COUNT(AUTO) 5.49 MIL/uL (4.0-5.2); WHITE BLOOD COUNT (AUTO) 12.4 K/uL (4.3-11.0)
[2022-02-05 21:11] LABS: ALANINE AMINOTRANSFERASE 20 U/L (12-78); ALKALINE PHOSPHATASE 92 U/L (46-116); ASPARTATE AMINOTRANSFERASE 18 U/L (15-37); BILIRUBIN,DIRECT 0.1 mg/dL (0.0-0.2); BILIRUBIN,TOTAL 0.6 mg/dL (0.2-1.0); CALCIUM, SERUM 9.1 mg/dL (8.5-10.1); CARBON DIOXIDE 28 mmol/L (21-32); CHLORIDE 104 mmol/L (98-107); CREATININE 1.1 mg/dL (0.6-1.3); GLUCOSE 143 mg/dL (74-106); POTASSIUM 3.8 mmol/L (3.5-5.1); SODIUM SERUM 142 mmol/L (136-145); TOTAL PROTEIN, SERUM 7.1 g/dL (6.4-8.2); UREA NITROGEN, BLOOD 13 mg/dL (7-18)
[2022-02-05 21:49] LABS: BILIRUBIN,URINE NEGATIVE (NEGATIVE); COLOR,URINE YELLOW (YELLOW); LEUKOCYTE ESTERASE ,URINE SMALL (NEGATIVE); NITRITE, URINE POSITIVE (NEGATIVE); PROTEIN,URINE NEGATIVE (NEGATIVE); UGLUCOSE NEGATIVE (NEGATIVE); UROBILINOGEN,URINE 0.2 EU/dL (0.2)
[2022-02-05 21:52] LABS: RBC,URINE 51-80 /HPF (0-2)
[2022-02-05 21:53] LABS: BACTERIA,URINE 4+ /HPF (None Seen); SQUAMOUS EPITHELIAL CELL,UR 0-2 /HPF (None Seen); WBC,URINE 21-50 /HPF (0-3)
[2022-02-05] MEDS ORDERED: LINACLOTIDE XX SCH (22:00)
[2022-02-05] MEDS ORDERED: MAGNESIUM HYDROXIDE 30 ML UDC PO PRN (22:00)
[2022-02-05] MEDS ORDERED: ACETAMINOPHEN 325 MG TABLET PO PRN (22:00)
[2022-02-05] MEDS ORDERED: TEMAZEPAM 15 MG CAPSULE PO PRN (22:00)
[2022-02-05] MEDS ORDERED: Z GUARD REMEDY 4 OZ OINT TP PRN (22:00)
[2022-02-05] MEDS ORDERED: MORPHINE SULFATE INJ 2 MG/ML DISP.SYRIN IV PRN (22:00)
[2022-02-05] MEDS ORDERED: DOCUSATE SODIUM 250 MG CAPSULE PO PRN (22:00)
[2022-02-05] MEDS ORDERED: MAG HYDROX/AL HYDROX/SIMETH 30 ML UDC PO PRN (22:00)
[2022-02-05] MEDS ORDERED: ONDANSETRON HCL/PF 4 MG/2 ML VIAL IVP PRN (22:00)
[2022-02-05] MEDS ORDERED: CEFTRIAXONE 1GM BAG (ER ONLY) 1 GM/50 ML PIGGYBACK IV ONE (22:30)
[2022-02-05] MEDS ORDERED: CEFTRIAXONE 1GM BAG (ER ONLY) 50 ML IV ONE (22:33)
[2022-02-05 23:00] VITALS: BP_SYST 128; BP_DIAS 68; BP_DIAS 69
[2022-02-05] MEDS: ATORVASTATIN 10 MG TABLET PO SCH (23:20)
[2022-02-05] MEDS: HYDROCODONE/APAP 5/325MG TABLET PO PRN (23:21)
[2022-02-06 04:00] VITALS: BP 148/59
[2022-02-06 07:05] LABS: BASOPHILS % (AUTO) 0.3 % (0.0-2.0); EOSINOPHILS % (AUTO) 0.4 % (0.0-6.0); HEMATOCRIT 44 % (33-45); HEMOGLOBIN 14.7 g/dL (11.5-14.8); LYMPHOCYTES # (AUTO) 1.9 K/uL (0.8-4.8); LYMPHOCYTES % (AUTO) 16.4 % (20.0-44.0); MEAN CORPUSCULAR HGB CONC 34 g/dl (31.0-36.0); MEAN CORPUSCULAR VOLUME 85 fL (82-100); MONOCYTES # (AUTO) 1.6 K/uL (0.1-1.30); MONOCYTES % (AUTO) 14.1 % (2.0-12.0); NEUTROPHILS % (AUTO) 68.8 % (43.0-81.0); PLATELET COUNT (AUTO) 204 K/uL (150-450); RED BLOOD CELL COUNT(AUTO) 5.19 MIL/uL (4.0-5.2); WHITE BLOOD COUNT (AUTO) 11.6 K/uL (4.3-11.0)
[2022-02-06] MEDS ORDERED: VALS320T2 PO (07:11)
[2022-02-06] MEDS ORDERED: FURO20TA4 PO (07:11)
[2022-02-06] MEDS ORDERED: ASPI-1420 PO (07:11)
[2022-02-06] MEDS ORDERED: CYAN500T9 PO (07:11)
[2022-02-06 07:22] LABS: CALCIUM, SERUM 8.8 mg/dL (8.5-10.1); PHOSPHORUS 3.7 mg/dL (2.5-4.9); POTASSIUM 3.7 mmol/L (3.5-5.1)
[2022-02-06 07:48] LABS: THYROID STIMULATING HORMONE 3.32 uIU/mL (0.358-3.74)
[2022-02-06 08:00] VITALS: BP 151/91
[2022-02-06] MEDS: PANTOPRAZOLE 40 MG TABLET.DR PO SCH (08:18)
[2022-02-06] MEDS: ASPIRIN 81 MG TAB.CHEW PO SCH (08:18)
[2022-02-06] MEDS: ATENOLOL 50 MG TABLET PO SCH (08:26)
[2022-02-06] MEDS: VALSARTAN 80 MG TABLET PO SCH (09:05)
[2022-02-06] MEDS: FUROSEMIDE 20 MG TABLET PO SCH (09:05)
[2022-02-06 12:00] VITALS: BP 123/76
[2022-02-06 16:00] VITALS: BP 125/61
[2022-02-06] MEDS: RIVAROXABAN 10 MG TABLET PO SCH (16:40)
[2022-02-06] MEDS: HYDROCODONE/APAP 5/325MG TABLET PO PRN (16:59)
[2022-02-06] MEDS ORDERED: AMLODIPINE BESYLATE 5 MG TABLET PO SCH (18:00)
[2022-02-06 20:00] VITALS: BP_SYST 122; BP_SYST 124; BP_DIAS 74; BP_DIAS 78
[2022-02-06] MEDS: ATORVASTATIN 10 MG TABLET PO SCH (21:27)
[2022-02-06] MEDS ORDERED: CEFTRIAXONE 1 G in IV D5W 50 ML IV SCH (23:00)
[2022-02-07] VITALS: BP 143/87
[2022-02-07 04:00] VITALS: BP 144/79
[2022-02-07 06:20] LABS: BASOPHILS # (AUTO) 0.1 K/uL (0.0-0.2); BASOPHILS % (AUTO) 0.5 % (0.0-2.0); EOSINOPHILS % (AUTO) 0.5 % (0.0-6.0); HEMATOCRIT 46 % (33-45); HEMOGLOBIN 15.5 g/dL (11.5-14.8); LYMPHOCYTES # (AUTO) 1.6 K/uL (0.8-4.8); LYMPHOCYTES % (AUTO) 13.8 % (20.0-44.0); MEAN CORPUSCULAR HGB CONC 33 g/dl (31.0-36.0); MEAN CORPUSCULAR VOLUME 85 fL (82-100); MONOCYTES # (AUTO) 1.4 K/uL (0.1-1.30); NEUTROPHILS # (AUTO) 8.5 K/uL (1.8-8.9); NEUTROPHILS % (AUTO) 73.2 % (43.0-81.0); PLATELET COUNT (AUTO) 230 K/uL (150-450); RED BLOOD CELL COUNT(AUTO) 5.48 MIL/uL (4.0-5.2); WHITE BLOOD COUNT (AUTO) 11.6 K/uL (4.3-11.0)
[2022-02-07 06:47] LABS: CALCIUM, SERUM 8.9 mg/dL (8.5-10.1); MAGNESIUM 2.2 mg/dL (1.8-2.4); PHOSPHORUS 3.1 mg/dL (2.5-4.9); POTASSIUM 4.1 mmol/L (3.5-5.1)
[2022-02-07 08:00] VITALS: BP 128/81
[2022-02-07] MEDS: FUROSEMIDE 20 MG TABLET PO SCH (08:30)
[2022-02-07] MEDS: PANTOPRAZOLE 40 MG TABLET.DR PO SCH (08:30)
[2022-02-07] MEDS: ASPIRIN 81 MG TAB.CHEW PO SCH (08:30)
[2022-02-07] MEDS: ATENOLOL 50 MG TABLET PO SCH (08:32)
[2022-02-07] MEDS: VALSARTAN 80 MG TABLET PO SCH (08:32)
[2022-02-07 16:00] VITALS: BP 121/73
[2022-02-07] MEDS: RIVAROXABAN 10 MG TABLET PO SCH (16:43)
== END 2022-02-07 20:40 | DRG 690 ==
LOC: ER 19:20 → TELE 22:14
PROVIDERS: ADMIT Nurse Practitioner Acute Care
DX: N39.0 Urinary tract infection, site not specified (principal); E44.0 Moderate protein-calorie malnutrition; I69.351 Hemiplegia and hemiparesis following cerebral infarction affecting right dominant side; I48.20 Chronic atrial fibrillation, unspecified; D68.59 Other primary thrombophilia; I50.32 Chronic diastolic (congestive) heart failure; I11.0 Hypertensive heart disease with heart failure; F41.9 Anxiety disorder, unspecified; E78.5 Hyperlipidemia, unspecified; Z87.440 Personal history of urinary (tract) infections; R53.1 Weakness; Z79.01 Long term (current) use of anticoagulants; E66.01 Morbid (severe) obesity due to excess calories; D72.829 Elevated white blood cell count, unspecified; Z74.09 Other reduced mobility; Z68.39 Body mass index [BMI] 39.0-39.9, adult; B96.20 Unspecified Escherichia coli [E. coli] as the cause of diseases classified elsewhere
CPT/HCPCS: 36415; 70450-TC; 71045-TC; 80048-TC; 80076-TC; 81001; 83735-TC; 83880; 84100-TC; 84443-TC; 84484-TC; 85025-TC; 85730-TC; 87081-TC; 87086-TC; 87186-TC; 93970-TC; 97112-TC; 97530-TC; C9803; G0378; J0696; J7050; J7060